=== PATIENT | female | born 1980 | race Two or more races ===

== ENCOUNTER 2021-07-20 14:38 | Emergency (ER) | payer OTHER ==
[2021-07-20 15:04] VITALS: TEMP 98.6; BMI 28.3
[2021-07-20] MEDS ORDERED: morphine CARPU-JECT 4 MG/1 ML DISP.SYRIN IVPUSH ONE (15:33)
[2021-07-20] MEDS ORDERED: HYDROmorphone HCL CARPU-JECT 2 MG/1 ML DISP.SYRIN IVPB ONE (15:53)
[2021-07-20] MEDS ORDERED: HYDROmorphone HCl 2 MG/ML VIAL ONE (16:01)
[2021-07-20 17:49] LABS: EPI CELLS 13 /uL (0-25.1); HYALINE CASTS 3 /uL (0-3.1); PH,URINE 5.5 (5.0-8.0); URINE APPEARANCE TURBID; URINE BACTERIA >9,000 /uL (0-1359); URINE BILIRUBIN NEGATIVE (NEGATIVE); URINE COLOR ORANGE; URINE GLUCOSE (UA) NEGATIVE (NEGATIVE); URINE KETONE TRACE (NEGATIVE); URINE LEUK ESTERASE 3+ (NEGATIVE); URINE NITRITE POSITIVE (NEGATIVE); URINE PROTEIN 2+ (NEGATIVE); URINE WBC 8816 /uL (0-25.8)
[2021-07-20 18:09] LABS: URINE RBC 540.9 /uL (0-23.9)
[2021-07-20] MEDS ORDERED: CEPHALEXIN MONOHYDRATE 500 MG CAPSULE (UD) PO ONE (18:56)
[2021-07-20] MEDS ORDERED: LIDOCAINE 5% TOPICAL PATCH TP ONE (19:14)
[2021-07-20] MEDS ORDERED: NITROFURANTOIN MACROCRYSTAL 50 MG CAPSULE (FP) PO SCH (19:15)
[2021-07-20] MEDS ORDERED: NITROFURANTOIN MACROCRYSTAL 50 MG CAPSULE (FP) ONE (20:02)
[2021-07-20] MEDS ORDERED: LIDOCAINE 5% TOPICAL PATCH ONE (20:03)
[2021-07-20] MEDS ORDERED: HYDROmorphone HCL CARPU-JECT 2 MG/1 ML DISP.SYRIN IM ONE (21:53)
[2021-07-20] MEDS ORDERED: LIDOCAINE PATCH REMOVAL MC SCH (22:00)
[2021-07-21 00:02] VITALS: BP 109/70; PULSE 107
[2021-07-21] MEDS ORDERED: HYDROmorphone HCl 2 MG/ML VIAL ONE ×2 (00:04→00:10)
== END 2021-07-21 05:13 | disposition home or self-care (01) ==
LOC: JER 14:38
PROC: 3E033GC Introduction of Other Therapeutic Substance into Peripheral Vein, Percutaneous Approach (ICD-10-PCS; principal; 2021-07-20)
PROC: 3E023GC Introduction of Other Therapeutic Substance into Muscle, Percutaneous Approach (ICD-10-PCS; principal; 2021-07-20)
DX: M54.89 Other dorsalgia (principal); W19.XXXA Unspecified fall, initial encounter
CPT/HCPCS: 72131-TC; 72192-TC; 81003; 84703; 87086; 87186; 99285-25

== ENCOUNTER 2021-08-15 10:59 | Inpatient (IN) | payer OTHER ==
[2021-08-15 11:06] VITALS: BMI 29.2
[2021-08-15] MEDS ORDERED: HYDROmorphone HCL CARPU-JECT 2 MG/1 ML DISP.SYRIN IVPUSH ONE ×2 (12:49→16:21)
[2021-08-15] MEDS ORDERED: HYDROmorphone HCl 2 MG/ML VIAL ONE ×3 (12:53→20:21)
[2021-08-15 13:57] LABS: RBC 3.39 M/mm3 (3.60-5.2); WHITE BLOOD COUNT 11.5 K/mm3 (4.0-10.0)
[2021-08-15 13:58] LABS: BASO % 0.5 % (0-2.0); EOS % 0.7 % (0-4.5); HEMATOCRIT 26.2 % (32.4-45.2); HEMOGLOBIN 8.6 GM/dL (10.7-15.3); LYMPH % 15.8 % (8-40); MCH 25.4 pg (25.7-33.7); MCHC 32.9 g/dl (32.0-36.0); MEAN CELL VOLUME 77.3 fl (80-96); MONO % 8.6 % (3.8-10.2); NEUT % 74.4 % (42.8-82.8); PLATELET COUNT 477 10^3/uL (134-434); RDW 16.1 % (11.6-15.6)
[2021-08-15 14:15] LABS: ALBUMIN 2.4 g/dl (3.4-5.0); BLOOD UREA NITROGEN 21.7 mg/dL (7-18); CALCIUM 8.5 mg/dL (8.5-10.1)
[2021-08-15 14:18] LABS: CREATININE 0.5 mg/dL (0.55-1.3)
[2021-08-15 14:19] LABS: BILIRUBIN,TOTAL 0.3 mg/dL (0.2-1)
[2021-08-15 14:20] LABS: TOT PROT 6.4 g/dl (6.4-8.2)
[2021-08-15 15:07] LABS: EPI CELLS 8 /uL (0-25.1); HYALINE CASTS 1 /uL (0-3.1); PH,URINE 6.5 (5.0-8.0); URINE APPEARANCE CLOUDY; URINE BACTERIA >9,000 /uL (0-1359); URINE BILIRUBIN NEGATIVE (NEGATIVE); URINE COLOR YELLOW; URINE GLUCOSE (UA) NEGATIVE (NEGATIVE); URINE KETONE NEGATIVE (NEGATIVE); URINE LEUK ESTERASE 3+ (NEGATIVE); URINE NITRITE POSITIVE (NEGATIVE); URINE PROTEIN 2+ (NEGATIVE); URINE RBC 215 /uL (0-23.9); URINE UROBILINOGEN 0.2 mg/dL (0.2-1.0); URINE WBC 1915 /uL (0-25.8)
[2021-08-15] MEDS ORDERED: CEFTRIAXONE 1,000 MG in DEXTROSE 5%-WATER - 50 ML IVPB ONE (16:01)
[2021-08-15] MEDS ORDERED: CEFTRIAXONE 1 GM/50 ML BAG ONE (16:05)
[2021-08-15] MEDS ORDERED: LACTATED RINGERS SOLUTION 1,000 ML/1,000 ML INFUS.BAG IV STA (16:39)
[2021-08-15] MEDS ORDERED: LINEZOLID 600 MG PREMIX BAG 600 MG in PREMIX 300 IVPB ONE (17:05)
[2021-08-15] MEDS ORDERED: HYDROmorphone HCL CARPU-JECT 2 MG/1 ML DISP.SYRIN IVPB PRN (17:08)
[2021-08-15] MEDS ORDERED: SODIUM CHLORIDE 1,000 ML IV SCH (17:15)
[2021-08-15] MEDS ORDERED: ENOXAPARIN NA (PORCINE) 40 MG/0.4 ML DISP.SYRIN SQ ONE (18:48)
[2021-08-15] MEDS: ENOXAPARIN NA (PORCINE) 40 MG/0.4 ML DISP.SYRIN SQ SCH (18:51)
[2021-08-15] MEDS ORDERED: SENNOSIDES 8.6MG TABLET (FP) PO ONE (23:13)
[2021-08-15] MEDS ORDERED: DOCUSATE SODIUM 100 MG CAPSULE (FP) PO ONE (23:14)
[2021-08-15] MEDS: DOCUSATE SODIUM 100 MG CAPSULE (FP) PO SCH (23:18)
[2021-08-15] MEDS: SENNOSIDES 8.6MG TABLET (FP) PO SCH (23:18)
[2021-08-16] MEDS: HYDROmorphone HCl 2 MG/ML VIAL IVPB PRN ×4 (00:58→23:44)
[2021-08-16] MEDS ORDERED: LINEZOLID 600 MG PREMIX BAG 600 MG/300 ML BAG IVPB SCH (06:00)
[2021-08-16 09:54] LABS: BASO % 0.5 % (0-2.0); EOS % 0.9 % (0-4.5); HEMATOCRIT 26.9 % (32.4-45.2); HEMOGLOBIN 8.8 GM/dL (10.7-15.3); LYMPH % 15.8 % (8-40); MCH 25.1 pg (25.7-33.7); MCHC 32.8 g/dl (32.0-36.0); MEAN CELL VOLUME 76.5 fl (80-96); MEAN PLT VOLUME 6.9 fl (7.5-11.1); MONO % 8.6 % (3.8-10.2); NEUT % 74.2 % (42.8-82.8); PLATELET COUNT 528 10^3/uL (134-434); RBC 3.52 M/mm3 (3.60-5.2); WHITE BLOOD COUNT 11.8 K/mm3 (4.0-10.0)
[2021-08-16 10:06] LABS: CALCIUM 8.3 mg/dL (8.5-10.1)
[2021-08-16 10:07] LABS: ALBUMIN 2.2 g/dl (3.4-5.0); BLOOD UREA NITROGEN 15.4 mg/dL (7-18)
[2021-08-16 10:10] LABS: CREATININE 0.5 mg/dL (0.55-1.3); PHOSPHOROUS 3.8 mg/dL (2.5-4.9)
[2021-08-16 10:11] LABS: TOT PROT 6.2 g/dl (6.4-8.2)
[2021-08-16 10:12] LABS: BILIRUBIN,TOTAL 0.5 mg/dL (0.2-1)
[2021-08-16] MEDS ORDERED: DEXTROSE 5%-WATER - 50 ML IVPB ONE (10:52)
[2021-08-16] MEDS ORDERED: cefTRIAXone SODIUM 1 GM VIAL ONE (10:52)
[2021-08-16] MEDS: ENOXAPARIN NA (PORCINE) 40 MG/0.4 ML DISP.SYRIN SQ SCH (10:56)
[2021-08-16] MEDS: CEFTRIAXONE 1 GM in DEXTROSE 5%-WATER - 50 ML IVPB SCH (10:56)
[2021-08-16] MEDS: DOCUSATE SODIUM 100 MG CAPSULE (FP) PO SCH ×2 (10:56→22:11)
[2021-08-16] MEDS: LINEZOLID 600 MG PREMIX BAG 600 MG/300 ML BAG IVPB SCH ×2 (12:51→12:52)
[2021-08-16] MEDS: oxyCODONE HCL 5 MG TABLET PO PRN ×2 (14:18→20:23)
[2021-08-16] MEDS: ACETAMINOPHEN 325 MG TABLET (FP) PO PRN (20:23)
[2021-08-16] MEDS: SENNOSIDES 8.6MG TABLET (FP) PO SCH (22:12)
[2021-08-16] MEDS: LINEZOLID 600 MG TABLET (RESTRICTED TO ID) PO SCH (22:12)
[2021-08-17] MEDS: LINEZOLID 600 MG TABLET (RESTRICTED TO ID) PO SCH ×3 (00:04→22:19)
[2021-08-17] MEDS: oxyCODONE HCL 5 MG TABLET PO PRN ×3 (06:04→20:30)
[2021-08-17] MEDS: ACETAMINOPHEN 325 MG TABLET (FP) PO PRN ×3 (06:04→20:31)
[2021-08-17] MEDS ORDERED: ONDANSETRON 4 MG/2 ML VIAL IVPUSH ONE (09:30)
[2021-08-17] MEDS ORDERED: cefTRIAXone SODIUM 1 GM VIAL ONE (10:10)
[2021-08-17] MEDS ORDERED: DEXTROSE 5%-WATER - 50 ML IVPB ONE (10:11)
[2021-08-17] MEDS: HYDROmorphone HCl 2 MG/ML VIAL IVPB PRN (10:27)
[2021-08-17] MEDS: CEFTRIAXONE 1 GM in DEXTROSE 5%-WATER - 50 ML IVPB SCH (10:30)
[2021-08-17] MEDS: DOCUSATE SODIUM 100 MG CAPSULE (FP) PO SCH ×2 (10:30→22:19)
[2021-08-17] MEDS: ENOXAPARIN NA (PORCINE) 40 MG/0.4 ML DISP.SYRIN SQ SCH (10:43)
[2021-08-17] MEDS ORDERED: clonazePAM 0.5 MG ODT TABLETS SL SCH (12:30)
[2021-08-17] MEDS ORDERED: clonazePAM 0.5 MG ODT TABLETS SL PRN (12:48)
[2021-08-17] MEDS: GABAPENTIN 300 MG CAPSULE PO SCH ×2 (14:59→22:19)
[2021-08-17] MEDS: clonazePAM 0.25 MG ODT TABLETS SL PRN (22:19)
[2021-08-17] MEDS: SENNOSIDES 8.6MG TABLET (FP) PO SCH (22:19)
[2021-08-17] MEDS: QUEtiapine FUMARATE 100 MG TABLET (FP) PO SCH (22:19)
[2021-08-17] MEDS: BACLOFEN 10 MG TABLET (FP) PO PRN (22:19)
[2021-08-18] MEDS: oxyCODONE HCL 5 MG TABLET PO PRN ×3 (05:21→20:26)
[2021-08-18] MEDS: GABAPENTIN 300 MG CAPSULE PO SCH ×3 (05:21→21:12)
[2021-08-18] MEDS: ACETAMINOPHEN 325 MG TABLET (FP) PO PRN ×2 (05:22→13:14)
[2021-08-18 08:31] LABS: CALCIUM 8.6 mg/dL (8.5-10.1)
[2021-08-18 08:33] LABS: ALBUMIN 2.3 g/dl (3.4-5.0); BLOOD UREA NITROGEN 18.3 mg/dL (7-18)
[2021-08-18 08:35] LABS: CREATININE 0.5 mg/dL (0.55-1.3)
[2021-08-18 08:37] LABS: BILIRUBIN,TOTAL 0.2 mg/dL (0.2-1); TOT PROT 6.8 g/dl (6.4-8.2)
[2021-08-18 08:40] LABS: HEMATOCRIT 29.3 % (32.4-45.2); HEMOGLOBIN 9.4 GM/dL (10.7-15.3); MCH 24.6 pg (25.7-33.7); MCHC 32.1 g/dl (32.0-36.0); MEAN CELL VOLUME 76.6 fl (80-96); MEAN PLT VOLUME 6.9 fl (7.5-11.1); PLATELET COUNT 646 10^3/uL (134-434); RBC 3.83 M/mm3 (3.60-5.2); RDW 15.8 % (11.6-15.6); WHITE BLOOD COUNT 9.8 K/mm3 (4.0-10.0)
[2021-08-18] MEDS ORDERED: DEXTROSE 5%-WATER - 50 ML IVPB ONE (09:59)
[2021-08-18] MEDS ORDERED: cefTRIAXone SODIUM 1 GM VIAL ONE (09:59)
[2021-08-18] MEDS: DOCUSATE SODIUM 100 MG CAPSULE (FP) PO SCH ×2 (10:13→21:12)
[2021-08-18] MEDS: LINEZOLID 600 MG TABLET (RESTRICTED TO ID) PO SCH (10:14)
[2021-08-18] MEDS: ENOXAPARIN NA (PORCINE) 40 MG/0.4 ML DISP.SYRIN SQ SCH (10:14)
[2021-08-18] MEDS: CEFTRIAXONE 1 GM in DEXTROSE 5%-WATER - 50 ML IVPB SCH (10:14)
[2021-08-18] MEDS ORDERED: AMPICILLIN NA/SULBACTAM NA 3 GM VIAL ONE ×2 (15:54→20:15)
[2021-08-18] MEDS ORDERED: SODIUM CHLORIDE 100 ML IVPB ONE ×2 (15:54→20:16)
[2021-08-18] MEDS: AMPICILLIN NA/SULBACTAM NA 3 GM in SODIUM CHLORIDE 100 ML IVPB SCH ×2 (15:57→20:26)
[2021-08-18] MEDS: QUEtiapine FUMARATE 100 MG TABLET (FP) PO SCH (21:12)
[2021-08-18] MEDS: SENNOSIDES 8.6MG TABLET (FP) PO SCH (21:12)
[2021-08-18] MEDS: BACLOFEN 10 MG TABLET (FP) PO PRN (23:37)
[2021-08-19] MEDS: ACETAMINOPHEN 325 MG TABLET (FP) PO PRN ×3 (00:39→15:05)
[2021-08-19] MEDS ORDERED: SODIUM CHLORIDE 100 ML IVPB ONE ×4 (02:06→21:17)
[2021-08-19] MEDS ORDERED: AMPICILLIN NA/SULBACTAM NA 3 GM VIAL ONE ×4 (02:06→21:17)
[2021-08-19] MEDS: oxyCODONE HCL 5 MG TABLET PO PRN ×4 (02:16→20:09)
[2021-08-19] MEDS: AMPICILLIN NA/SULBACTAM NA 3 GM in SODIUM CHLORIDE 100 ML IVPB SCH ×4 (02:16→21:22)
[2021-08-19] MEDS: GABAPENTIN 300 MG CAPSULE PO SCH ×3 (05:36→21:23)
[2021-08-19 08:07] LABS: HEMATOCRIT 28.1 % (32.4-45.2); HEMOGLOBIN 9.1 GM/dL (10.7-15.3); MCH 24.7 pg (25.7-33.7); MCHC 32.5 g/dl (32.0-36.0); MEAN CELL VOLUME 76.1 fl (80-96); MEAN PLT VOLUME 6.8 fl (7.5-11.1); PLATELET COUNT 651 10^3/uL (134-434); RDW 15.7 % (11.6-15.6); WHITE BLOOD COUNT 9.4 K/mm3 (4.0-10.0)
[2021-08-19 08:55] LABS: CALCIUM 8.7 mg/dL (8.5-10.1)
[2021-08-19 08:56] LABS: ALBUMIN 2.2 g/dl (3.4-5.0); BLOOD UREA NITROGEN 20.9 mg/dL (7-18)
[2021-08-19 08:59] LABS: CREATININE 0.6 mg/dL (0.55-1.3)
[2021-08-19 09:01] LABS: BILIRUBIN,TOTAL 0.2 mg/dL (0.2-1); TOT PROT 6.6 g/dl (6.4-8.2)
[2021-08-19] MEDS: ENOXAPARIN NA (PORCINE) 40 MG/0.4 ML DISP.SYRIN SQ SCH (09:15)
[2021-08-19] MEDS: DOCUSATE SODIUM 100 MG CAPSULE (FP) PO SCH ×2 (09:15→21:23)
[2021-08-19] MEDS: BACLOFEN 10 MG TABLET (FP) PO PRN (20:09)
[2021-08-19] MEDS: SENNOSIDES 8.6MG TABLET (FP) PO SCH (21:22)
[2021-08-19] MEDS: QUEtiapine FUMARATE 100 MG TABLET (FP) PO SCH (21:23)
[2021-08-20] MEDS: ACETAMINOPHEN 325 MG TABLET (FP) PO PRN ×3 (00:07→20:26)
[2021-08-20] MEDS: oxyCODONE HCL 5 MG TABLET PO PRN ×4 (01:20→20:26)
[2021-08-20] MEDS ORDERED: AMPICILLIN NA/SULBACTAM NA 3 GM VIAL ONE ×3 (02:53→14:57)
[2021-08-20] MEDS ORDERED: SODIUM CHLORIDE 100 ML IVPB ONE ×2 (02:54→09:04)
[2021-08-20] MEDS: AMPICILLIN NA/SULBACTAM NA 3 GM in SODIUM CHLORIDE 100 ML IVPB SCH ×3 (03:02→15:04)
[2021-08-20] MEDS: GABAPENTIN 300 MG CAPSULE PO SCH ×3 (06:05→21:33)
[2021-08-20 08:13] LABS: HEMATOCRIT 26.8 % (32.4-45.2); HEMOGLOBIN 8.7 GM/dL (10.7-15.3); MCH 24.8 pg (25.7-33.7); MCHC 32.6 g/dl (32.0-36.0); MEAN CELL VOLUME 75.9 fl (80-96); MEAN PLT VOLUME 6.4 fl (7.5-11.1); PLATELET COUNT 580 10^3/uL (134-434); RBC 3.53 M/mm3 (3.60-5.2); RDW 15.6 % (11.6-15.6); WHITE BLOOD COUNT 8.8 K/mm3 (4.0-10.0)
[2021-08-20 08:57] LABS: CALCIUM 8.4 mg/dL (8.5-10.1)
[2021-08-20 08:58] LABS: ALBUMIN 2.2 g/dl (3.4-5.0); BLOOD UREA NITROGEN 19.9 mg/dL (7-18)
[2021-08-20 09:00] LABS: CREATININE 0.4 mg/dL (0.55-1.3)
[2021-08-20 09:02] LABS: BILIRUBIN,TOTAL 0.2 mg/dL (0.2-1); TOT PROT 6.6 g/dl (6.4-8.2)
[2021-08-20] MEDS: FLUoxetine HCL 20 MG CAPSULE PO SCH (09:12)
[2021-08-20] MEDS: ENOXAPARIN NA (PORCINE) 40 MG/0.4 ML DISP.SYRIN SQ SCH (09:12)
[2021-08-20] MEDS: DOCUSATE SODIUM 100 MG CAPSULE (FP) PO SCH ×2 (09:12→21:33)
[2021-08-20] MEDS: POLYETHYLENE GLYCOL (HEALTHYLAX) 3350 17 GM PACKET PO SCH (21:33)
[2021-08-20] MEDS: BACLOFEN 10 MG TABLET (FP) PO PRN (21:33)
[2021-08-20] MEDS: QUEtiapine FUMARATE 100 MG TABLET (FP) PO SCH (21:33)
[2021-08-20] MEDS: CYCLOBENZAPRINE HCL 10 MG TABLET (FP) PO SCH (21:33)
[2021-08-20] MEDS: SENNOSIDES 8.6MG TABLET (FP) PO SCH (21:34)
[2021-08-20] MEDS: clonazePAM 0.25 MG ODT TABLETS SL PRN (21:34)
[2021-08-21] MEDS: oxyCODONE HCL 5 MG TABLET PO PRN ×2 (04:47→10:08)
[2021-08-21] MEDS: BACLOFEN 10 MG TABLET (FP) PO PRN ×2 (04:47→10:10)
[2021-08-21] MEDS: ACETAMINOPHEN 325 MG TABLET (FP) PO PRN ×2 (04:48→10:09)
[2021-08-21] MEDS: GABAPENTIN 300 MG CAPSULE PO SCH (05:00)
[2021-08-21 05:55] VITALS: BP 122/58; PULSE 85; TEMP 97.9
[2021-08-21 09:53] LABS: HEMATOCRIT 27.6 % (32.4-45.2); HEMOGLOBIN 8.9 GM/dL (10.7-15.3); MCH 24.3 pg (25.7-33.7); MCHC 32.1 g/dl (32.0-36.0); MEAN CELL VOLUME 75.6 fl (80-96); MEAN PLT VOLUME 6.2 fl (7.5-11.1); PLATELET COUNT 593 10^3/uL (134-434); RBC 3.66 M/mm3 (3.60-5.2); RDW 16.2 % (11.6-15.6); WHITE BLOOD COUNT 8.4 K/mm3 (4.0-10.0)
[2021-08-21] MEDS: ENOXAPARIN NA (PORCINE) 40 MG/0.4 ML DISP.SYRIN SQ SCH (10:02)
[2021-08-21] MEDS: FLUoxetine HCL 20 MG CAPSULE PO SCH (10:02)
[2021-08-21] MEDS: POLYETHYLENE GLYCOL (HEALTHYLAX) 3350 17 GM PACKET PO SCH (10:03)
[2021-08-21] MEDS: CYCLOBENZAPRINE HCL 10 MG TABLET (FP) PO SCH (10:03)
[2021-08-21] MEDS: DOCUSATE SODIUM 100 MG CAPSULE (FP) PO SCH (10:03)
[2021-08-21 10:07] LABS: CALCIUM 8.6 mg/dL (8.5-10.1)
[2021-08-21 10:08] LABS: ALBUMIN 2.2 g/dl (3.4-5.0); BLOOD UREA NITROGEN 21.6 mg/dL (7-18)
[2021-08-21 10:11] LABS: CREATININE 0.5 mg/dL (0.55-1.3)
[2021-08-21 10:12] LABS: BILIRUBIN,TOTAL 0.3 mg/dL (0.2-1)
[2021-08-21 10:13] LABS: TOT PROT 6.5 g/dl (6.4-8.2)
[2021-08-21] MEDS ORDERED: AMOX TR/POT CLAV 875MG/125MG TABLETS (FP) PO SCH (19:04)
== END 2021-08-21 11:58 | disposition home or self-care (01) | DRG 463 ==
LOC: JER 10:59 → JERBED 15:57 → J8W 08-16 00:38
PROVIDERS: ADMIT Internal Medicine; ATTEND Internal Medicine
DX: N39.0 Urinary tract infection, site not specified (principal); D50.9 Iron deficiency anemia, unspecified; K59.09 Other constipation; N31.9 Neuromuscular dysfunction of bladder, unspecified; F32.A Depression, unspecified; D72.829 Elevated white blood cell count, unspecified; Z86.16 Personal history of COVID-19; R11.2 Nausea with vomiting, unspecified; R31.0 Gross hematuria; B95.2 Enterococcus as the cause of diseases classified elsewhere; B96.20 Unspecified Escherichia coli [E. coli] as the cause of diseases classified elsewhere; Z28.310 Unvaccinated for COVID-19; F41.9 Anxiety disorder, unspecified
CPT/HCPCS: 36415; 74176-TC; 80053; 81003; 82272; 82728; 83540; 83550; 83735; 84100; 85025; 85027; 85045; 87040; 87086; 87186; 93005; 93010; 97162-GP; 99285-25; C9803-CS; J0475; U0003; U0005

== ENCOUNTER 2021-11-04 10:27 | Emergency (ER) | payer OTHER ==
[2021-11-04 10:59] VITALS: TEMP 98.2; BMI 24.7
[2021-11-04] MEDS ORDERED: SODIUM CHLORIDE 1,000 ML IV STA (11:07)
[2021-11-04] MEDS ORDERED: ACETAMINOPHEN 1000 MG/100 ML BAG IVPB ONE (11:07)
[2021-11-04] MEDS ORDERED: ACETAMINOPHEN INJECTION 100 ML IVPB ONE (11:26)
[2021-11-04 12:07] LABS: BASO % 0.6 % (0-2.0); EOS % 1.2 % (0-4.5); HEMATOCRIT 34.6 % (32.4-45.2); HEMOGLOBIN 11.7 GM/dL (10.7-15.3); LYMPH % 23.7 % (8-40); MCHC 33.8 g/dl (32.0-36.0); MEAN CELL VOLUME 76.7 fl (80-96); MONO % 7.3 % (3.8-10.2); NEUT % 67.2 % (42.8-82.8); PLATELET COUNT 418 10^3/uL (134-434); RBC 4.51 M/mm3 (3.60-5.2); RDW 17.2 % (11.6-15.6)
[2021-11-04 12:09] LABS: EPI CELLS 32 /uL (0-25.1); HYALINE CASTS 8 /uL (0-3.1); PH,URINE 5.5 (5.0-8.0); URINE APPEARANCE TURBID; URINE BACTERIA 8151 /uL (0-1359); URINE BILIRUBIN NEGATIVE (NEGATIVE); URINE COLOR YELLOW; URINE GLUCOSE (UA) NEGATIVE (NEGATIVE); URINE KETONE NEGATIVE (NEGATIVE); URINE LEUK ESTERASE 3+ (NEGATIVE); URINE NITRITE POSITIVE (NEGATIVE); URINE PROTEIN 2+ (NEGATIVE); URINE RBC 466 /uL (0-23.9); URINE UROBILINOGEN 0.2 mg/dL (0.2-1.0); URINE WBC 9051 /uL (0-25.8)
[2021-11-04] MEDS ORDERED: HYDROmorphone HCL CARPU-JECT 2 MG/1 ML DISP.SYRIN IVPB ONE (12:15)
[2021-11-04] MEDS ORDERED: HYDROmorphone HCl 2 MG/ML VIAL ONE (12:21)
[2021-11-04 12:30] LABS: CALCIUM 8.8 mg/dL (8.5-10.1)
[2021-11-04 12:31] LABS: ALBUMIN 3.2 g/dl (3.4-5.0); BLOOD UREA NITROGEN 12.3 mg/dL (7-18)
[2021-11-04 12:34] LABS: CREATININE 0.5 mg/dL (0.55-1.3)
[2021-11-04 12:36] LABS: BILIRUBIN,TOTAL 0.5 mg/dL (0.2-1); TOT PROT 7.3 g/dl (6.4-8.2)
[2021-11-04] MEDS ORDERED: CEFTRIAXONE 1,000 MG in DEXTROSE 5%-WATER - 50 ML IVPB ONE (13:18)
[2021-11-04] MEDS ORDERED: CEFTRIAXONE 1 GM/50 ML BAG ONE (13:34)
[2021-11-04] MEDS ORDERED: SODIUM CHLORIDE 0.9% 500 ML INFUS.BAG IV ONE (14:32)
[2021-11-04 16:27] VITALS: BP 111/77; PULSE 60; RESP 14
== END 2021-11-04 16:27 | disposition home or self-care (01) ==
LOC: JER 10:27
PROC: 3E033GC Introduction of Other Therapeutic Substance into Peripheral Vein, Percutaneous Approach (ICD-10-PCS; principal; 2021-11-04)
DX: N39.0 Urinary tract infection, site not specified (principal); R31.9 Hematuria, unspecified
CPT/HCPCS: 36415; 80053; 81003; 85025; 87086; 87186; 93005; 93010; 99284-25

== ENCOUNTER 2022-01-17 01:26 | Inpatient (IN) | payer OTHER ==
[2022-01-17] MEDS ORDERED: HYDROmorphone HCL CARPU-JECT 2 MG/1 ML DISP.SYRIN IVPUSH ONE (02:51)
[2022-01-17] MEDS ORDERED: ONDANSETRON 4 MG/2 ML VIAL IVPUSH ONE (02:51)
[2022-01-17 03:00] LABS: EPI CELLS 4 /uL (0-25.1); HYALINE CASTS 5 /uL (0-3.1); URINE APPEARANCE CLOUDY; URINE BACTERIA 2303 /uL (0-1359); URINE BILIRUBIN NEGATIVE (NEGATIVE); URINE COLOR YELLOW; URINE GLUCOSE (UA) NEGATIVE (NEGATIVE); URINE KETONE NEGATIVE (NEGATIVE); URINE LEUK ESTERASE 3+ (NEGATIVE); URINE NITRITE NEGATIVE (NEGATIVE); URINE PROTEIN TRACE (NEGATIVE); URINE RBC 293 /uL (0-23.9); URINE UROBILINOGEN 0.2 mg/dL (0.2-1.0); URINE WBC 926 /uL (0-25.8)
[2022-01-17] MEDS ORDERED: LINEZOLID 600 MG PREMIX BAG 600 MG in PREMIX 300 IVPB ONE (03:04)
[2022-01-17] MEDS ORDERED: PIPERACILLIN/TAZOB 3.375 GM 3.375 GM in DEXTROSE 5%-WATER - 50 ML IVPB ONE (03:05)
[2022-01-17] MEDS ORDERED: HYDROmorphone HCl 2 MG/ML VIAL ONE ×2 (03:11→10:27)
[2022-01-17] MEDS ORDERED: ONDANSETRON 4 MG/2 ML VIAL ONE (03:12)
[2022-01-17] MEDS ORDERED: PIPERACILLIN/TAZOB 3.375 GM 3.375 GM/50 ML BAG IVPB ONE ×3 (03:25→10:42)
[2022-01-17 03:32] LABS: BASO % 0.9 % (0-2.0); EOS % 3.4 % (0-4.5); HEMATOCRIT 33.3 % (32.4-45.2); HEMOGLOBIN 10.8 GM/dL (10.7-15.3); LYMPH % 31.9 % (8-40); MCH 25.5 pg (25.7-33.7); MCHC 32.6 g/dl (32.0-36.0); MEAN CELL VOLUME 78.4 fl (80-96); MEAN PLT VOLUME 7.5 fl (7.5-11.1); MONO % 9.8 % (3.8-10.2); PLATELET COUNT 382 10^3/uL (134-434); RBC 4.25 M/mm3 (3.60-5.2); RDW 18.3 % (11.6-15.6); WHITE BLOOD COUNT 7.7 K/mm3 (4.0-10.0)
[2022-01-17 04:00] LABS: ALBUMIN 3.3 g/dl (3.4-5.0); BLOOD UREA NITROGEN 14.8 mg/dL (7-18); CALCIUM 8.7 mg/dL (8.5-10.1); MAGNESIUM 1.9 mg/dL (1.8-2.4)
[2022-01-17 04:04] LABS: CREATININE 0.6 mg/dL (0.55-1.3)
[2022-01-17 04:05] LABS: BILIRUBIN,TOTAL 0.2 mg/dL (0.2-1); TOT PROT 6.7 g/dl (6.4-8.2)
[2022-01-17] MEDS ORDERED: SENNOSIDES/DOCUSATE COMBO (SENNA PLUS) TABLET (UD) PO PRN (06:02)
[2022-01-17] MEDS ORDERED: ACETAMINOPHEN 325 MG TABLET (FP) PO PRN (06:02)
[2022-01-17] MEDS ORDERED: GABAPENTIN 300 MG CAPSULE ONE ×2 (06:23→13:01)
[2022-01-17] MEDS ORDERED: LIDOCAINE 5% TOPICAL PATCH ONE (06:23)
[2022-01-17] MEDS: GABAPENTIN 300 MG CAPSULE PO SCH ×3 (06:28→22:33)
[2022-01-17] MEDS ORDERED: LIDOCAINE 5% TOPICAL PATCH TP ONE (06:45)
[2022-01-17] MEDS ORDERED: LINEZOLID 600 MG PREMIX BAG 600 MG in PREMIX 300 IVPB SCH ×2 (06:45→16:00)
[2022-01-17] MEDS ORDERED: oxyCODONE HCL 5 MG TABLET ONE ×2 (07:26→15:25)
[2022-01-17] MEDS ORDERED: clonazePAM 0.5 MG TABLET ONE (07:26)
[2022-01-17] MEDS ORDERED: ACETAMINOPHEN 325 MG TABLET (FP) ONE (07:26)
[2022-01-17] MEDS ORDERED: oxyCODONE HCL 5 MG TABLET PO PRN (07:43)
[2022-01-17] MEDS ORDERED: morphine CARPU-JECT 2 MG/1 ML DISP.SYRIN IVPUSH PRN (09:11)
[2022-01-17 09:15] LABS: HCG,QUALITATIVE URINE Negative
[2022-01-17] MEDS: clonazePAM 0.25 MG ODT TABLETS SL SCH ×2 (09:22→22:32)
[2022-01-17] MEDS ORDERED: HYDROmorphone HCl 2 MG/ML VIAL IVPUSH ONE (09:30)
[2022-01-17] MEDS ORDERED: PIPERACILLIN/TAZOB 3.375 GM 3.375 GM in DEXTROSE 5%-WATER - 50 ML IVPB SCH (10:00)
[2022-01-17] MEDS ORDERED: FLUoxetine HCL 20 MG CAPSULE PO SCH (10:00)
[2022-01-17] MEDS ORDERED: ENOXAPARIN NA (PORCINE) 40 MG/0.4 ML DISP.SYRIN SQ ONE (10:29)
[2022-01-17] MEDS: ENOXAPARIN NA (PORCINE) 40 MG/0.4 ML DISP.SYRIN SQ SCH (10:51)
[2022-01-17] MEDS: POLYETHYLENE GLYCOL (HEALTHYLAX) 3350 17 GM PACKET PO SCH (11:04)
[2022-01-17] MEDS ORDERED: CEFTRIAXONE 2 GM in DEXTROSE 5%-WATER 50 ML IVPB SCH (12:30)
[2022-01-17] MEDS ORDERED: CEFTRIAXONE 2 GM/100 ML BAG IVPB ONE (13:01)
[2022-01-17] MEDS: oxyCODONE HCL 5 MG TABLET PO PRN (15:30)
[2022-01-17] MEDS ORDERED: LINEZOLID 600 MG PREMIX BAG 600 MG/300 ML BAG IVPB SCH (16:00)
[2022-01-17] MEDS ORDERED: ONDANSETRON 4 MG/2 ML VIAL IVPUSH PRN (21:58)
[2022-01-17] MEDS ORDERED: HYDROmorphone HCl 2 MG/ML VIAL IVPB ONE (22:07)
[2022-01-17] MEDS: LIDOCAINE PATCH REMOVAL MC SCH (22:32)
[2022-01-17] MEDS: DOCUSATE SODIUM 100 MG CAPSULE (FP) PO SCH (22:32)
[2022-01-18 03:49] VITALS: BMI 25.1
[2022-01-18] MEDS: GABAPENTIN 300 MG CAPSULE PO SCH ×3 (06:17→21:00)
[2022-01-18] MEDS: oxyCODONE HCL 5 MG TABLET PO PRN ×3 (09:05→23:46)
[2022-01-18] MEDS: FLUoxetine HCL 20 MG CAPSULE PO SCH (09:22)
[2022-01-18] MEDS: clonazePAM 0.25 MG ODT TABLETS SL SCH ×2 (09:23→21:01)
[2022-01-18] MEDS: POLYETHYLENE GLYCOL (HEALTHYLAX) 3350 17 GM PACKET PO SCH (09:23)
[2022-01-18] MEDS: ENOXAPARIN NA (PORCINE) 40 MG/0.4 ML DISP.SYRIN SQ SCH ×2 (09:23→09:24)
[2022-01-18] MEDS: BACLOFEN 10 MG TABLET (FP) PO PRN (09:30)
[2022-01-18] MEDS: CEFTRIAXONE 2 GM in DEXTROSE 5%-WATER 100 ML IVPB SCH (09:30)
[2022-01-18 09:49] LABS: BASO % 0.9 % (0-2.0); EOS % 3.9 % (0-4.5); HEMATOCRIT 32.7 % (32.4-45.2); HEMOGLOBIN 10.4 GM/dL (10.7-15.3); LYMPH % 32.6 % (8-40); MCH 24.9 pg (25.7-33.7); MCHC 31.8 g/dl (32.0-36.0); MEAN CELL VOLUME 78.4 fl (80-96); MEAN PLT VOLUME 7.9 fl (7.5-11.1); MONO % 8.5 % (3.8-10.2); NEUT % 54.1 % (42.8-82.8); PLATELET COUNT 367 10^3/uL (134-434); RBC 4.17 M/mm3 (3.60-5.2); WHITE BLOOD COUNT 7.2 K/mm3 (4.0-10.0)
[2022-01-18 10:16] LABS: CALCIUM 8.4 mg/dL (8.5-10.1)
[2022-01-18 10:18] LABS: BLOOD UREA NITROGEN 23.6 mg/dL (7-18); MAGNESIUM 2.1 mg/dL (1.8-2.4)
[2022-01-18 10:20] LABS: CREATININE 0.6 mg/dL (0.55-1.3)
[2022-01-18 10:22] LABS: BILIRUBIN,TOTAL 0.2 mg/dL (0.2-1); TOT PROT 6.5 g/dl (6.4-8.2)
[2022-01-18] MEDS: DOCUSATE SODIUM 100 MG CAPSULE (FP) PO SCH (21:00)
[2022-01-18] MEDS: ACETAMINOPHEN 325 MG TABLET (FP) PO PRN (21:01)
[2022-01-18] MEDS: LIDOCAINE PATCH REMOVAL MC SCH (21:01)
[2022-01-19] MEDS: GABAPENTIN 300 MG CAPSULE PO SCH ×3 (06:14→22:34)
[2022-01-19] MEDS: oxyCODONE HCL 5 MG TABLET PO PRN ×4 (06:19→23:38)
[2022-01-19 09:41] LABS: BASO % 0.8 % (0-2.0); EOS % 4.3 % (0-4.5); HEMATOCRIT 34.7 % (32.4-45.2); LYMPH % 42.3 % (8-40); MCH 24.9 pg (25.7-33.7); MCHC 31.8 g/dl (32.0-36.0); MEAN CELL VOLUME 78.5 fl (80-96); MEAN PLT VOLUME 7.9 fl (7.5-11.1); MONO % 7.6 % (3.8-10.2); PLATELET COUNT 388 10^3/uL (134-434); RBC 4.42 M/mm3 (3.60-5.2); RDW 17.9 % (11.6-15.6); WHITE BLOOD COUNT 6.3 K/mm3 (4.0-10.0)
[2022-01-19] MEDS: ENOXAPARIN NA (PORCINE) 40 MG/0.4 ML DISP.SYRIN SQ SCH (09:51)
[2022-01-19] MEDS: FLUoxetine HCL 20 MG CAPSULE PO SCH (09:55)
[2022-01-19] MEDS: clonazePAM 0.25 MG ODT TABLETS SL SCH ×2 (09:56→22:34)
[2022-01-19] MEDS: POLYETHYLENE GLYCOL (HEALTHYLAX) 3350 17 GM PACKET PO SCH (09:59)
[2022-01-19] MEDS: CEFTRIAXONE 2 GM in DEXTROSE 5%-WATER 100 ML IVPB SCH (09:59)
[2022-01-19 10:09] LABS: ALBUMIN 3.2 g/dl (3.4-5.0); BLOOD UREA NITROGEN 30.4 mg/dL (7-18); CALCIUM 8.4 mg/dL (8.5-10.1); CREATININE 0.6 mg/dL (0.55-1.3); MAGNESIUM 2.2 mg/dL (1.8-2.4)
[2022-01-19 10:14] LABS: BILIRUBIN,TOTAL 0.3 mg/dL (0.2-1); TOT PROT 6.8 g/dl (6.4-8.2)
[2022-01-19] MEDS: BACLOFEN 10 MG TABLET (FP) PO PRN ×2 (11:38→17:32)
[2022-01-19] MEDS: DOCUSATE SODIUM 100 MG CAPSULE (FP) PO SCH (22:34)
[2022-01-19] MEDS: ACETAMINOPHEN 325 MG TABLET (FP) PO PRN (22:39)
[2022-01-19] MEDS: LIDOCAINE PATCH REMOVAL MC SCH (22:42)
[2022-01-20] MEDS: GABAPENTIN 300 MG CAPSULE PO SCH ×3 (07:40→21:36)
[2022-01-20] MEDS: BACLOFEN 10 MG TABLET (FP) PO PRN ×3 (07:44→19:00)
[2022-01-20] MEDS: oxyCODONE HCL 5 MG TABLET PO PRN ×4 (07:44→21:47)
[2022-01-20 09:34] LABS: HEMATOCRIT 33.5 % (32.4-45.2); HEMOGLOBIN 10.7 GM/dL (10.7-15.3); LYMPH % 40.4 % (8-40); MCH 24.9 pg (25.7-33.7); MCHC 31.9 g/dl (32.0-36.0); MEAN CELL VOLUME 78.2 fl (80-96); MONO % 7.3 % (3.8-10.2); NEUT % 47.3 % (42.8-82.8); PLATELET COUNT 389 10^3/uL (134-434); RBC 4.29 M/mm3 (3.60-5.2); RDW 17.6 % (11.6-15.6); WHITE BLOOD COUNT 6.9 K/mm3 (4.0-10.0)
[2022-01-20 09:54] LABS: CALCIUM 8.3 mg/dL (8.5-10.1)
[2022-01-20 09:55] LABS: ALBUMIN 3.1 g/dl (3.4-5.0); BLOOD UREA NITROGEN 19.7 mg/dL (7-18); MAGNESIUM 2.1 mg/dL (1.8-2.4)
[2022-01-20 09:58] LABS: CREATININE 0.5 mg/dL (0.55-1.3)
[2022-01-20 09:59] LABS: BILIRUBIN,TOTAL 0.3 mg/dL (0.2-1); TOT PROT 6.7 g/dl (6.4-8.2)
[2022-01-20] MEDS: CEFTRIAXONE 2 GM in DEXTROSE 5%-WATER 100 ML IVPB SCH (10:48)
[2022-01-20] MEDS: ENOXAPARIN NA (PORCINE) 40 MG/0.4 ML DISP.SYRIN SQ SCH (10:49)
[2022-01-20] MEDS: clonazePAM 0.25 MG ODT TABLETS SL SCH ×2 (10:49→21:35)
[2022-01-20] MEDS: FLUoxetine HCL 20 MG CAPSULE PO SCH (10:50)
[2022-01-20] MEDS: POLYETHYLENE GLYCOL (HEALTHYLAX) 3350 17 GM PACKET PO SCH ×2 (11:32→17:30)
[2022-01-20] MEDS: ACETAMINOPHEN 325 MG TABLET (FP) PO PRN (17:49)
[2022-01-20] MEDS: DOCUSATE SODIUM 100 MG CAPSULE (FP) PO SCH (21:36)
[2022-01-20] MEDS: LIDOCAINE PATCH REMOVAL MC SCH (21:39)
[2022-01-21] MEDS: oxyCODONE HCL 5 MG TABLET PO PRN ×3 (02:29→10:37)
[2022-01-21] MEDS: GABAPENTIN 300 MG CAPSULE PO SCH ×2 (06:21→14:42)
[2022-01-21] MEDS: clonazePAM 0.25 MG ODT TABLETS SL SCH (09:37)
[2022-01-21] MEDS: POLYETHYLENE GLYCOL (HEALTHYLAX) 3350 17 GM PACKET PO SCH (09:37)
[2022-01-21] MEDS: FLUoxetine HCL 20 MG CAPSULE PO SCH (09:37)
[2022-01-21] MEDS: ENOXAPARIN NA (PORCINE) 40 MG/0.4 ML DISP.SYRIN SQ SCH ×2 (09:38→09:45)
[2022-01-21] MEDS: CEFTRIAXONE 2 GM in DEXTROSE 5%-WATER 100 ML IVPB SCH (09:38)
[2022-01-21] MEDS: ACETAMINOPHEN 325 MG TABLET (FP) PO PRN (09:47)
[2022-01-21] MEDS: BACLOFEN 10 MG TABLET (FP) PO PRN (09:48)
[2022-01-21 11:49] VITALS: BP 111/61; PULSE 88; RESP 18; TEMP 98.5
== END 2022-01-21 15:05 | disposition home or self-care (01) | DRG 463 ==
LOC: JER 01:26 → JERBED 04:36 → J8W 20:30
PROVIDERS: ADMIT Internal Medicine; ATTEND Nurse Practitioner Acute Care
DX: N39.0 Urinary tract infection, site not specified (principal); N31.9 Neuromuscular dysfunction of bladder, unspecified; Z86.16 Personal history of COVID-19; R11.2 Nausea with vomiting, unspecified; F41.9 Anxiety disorder, unspecified; M54.9 Dorsalgia, unspecified; R31.0 Gross hematuria; D50.9 Iron deficiency anemia, unspecified
CPT/HCPCS: 36415; 71045-TC-FY; 80053; 81003; 83735; 84703; 85025; 87040; 87086; 87186; 93005; 93010; 97116-GP; 97161-GP; 99285-25; C9803-CS; J0475; U0003; U0005

== ENCOUNTER 2022-05-06 11:37 | Observation (INO) | payer OTHER ==
[2022-05-06] MEDS ORDERED: KETOROLAC TROMETHAMINE 30 MG/1 ML VIAL IVPUSH ONE (12:21)
[2022-05-06] MEDS ORDERED: KETOROLAC TROMETHAMINE 30 MG/1 ML VIAL ONE (12:39)
[2022-05-06] MEDS ORDERED: SODIUM CHLORIDE 2,177 ML IV ONE (12:40)
[2022-05-06] MEDS ORDERED: CEFTRIAXONE 1 GM in DEXTROSE 5%-WATER - 100 ML IVPB ONE (12:41)
[2022-05-06 12:47] LABS: EPI CELLS 31 /uL (0-25.1); HYALINE CASTS 4 /uL (0-3.1); PH,URINE 5.5 (5.0-8.0); URINE APPEARANCE TURBID; URINE BACTERIA 5673 /uL (0-1359); URINE BILIRUBIN NEGATIVE (NEGATIVE); URINE COLOR YELLOW; URINE GLUCOSE (UA) NEGATIVE (NEGATIVE); URINE KETONE TRACE (NEGATIVE); URINE LEUK ESTERASE 2+ (NEGATIVE); URINE NITRITE POSITIVE (NEGATIVE); URINE PROTEIN 3+ (NEGATIVE); URINE WBC 8904 /uL (0-25.8)
[2022-05-06] MEDS ORDERED: oxyCODONE/APAP PERCOCET - MUST ORDER INDIVIDUAL COMPONENTS NR ONE (12:49)
[2022-05-06] MEDS ORDERED: CEFTRIAXONE 1 GM/50 ML BAG ONE (12:50)
[2022-05-06 13:10] LABS: CALCIUM 8.4 mg/dL (8.5-10.1)
[2022-05-06 13:11] LABS: BLOOD UREA NITROGEN 19.6 mg/dL (7-18)
[2022-05-06 13:13] LABS: CREATININE 0.5 mg/dL (0.55-1.3)
[2022-05-06 13:15] LABS: BILIRUBIN,TOTAL 0.1 mg/dL (0.2-1); TOT PROT 6.6 g/dl (6.4-8.2)
[2022-05-06 13:16] LABS: URINE RBC 235.2 /uL (0-23.9); YEAST NEGATIVE (NEGATIVE)
[2022-05-06] MEDS ORDERED: PHENAZOPYRIDINE HCL 100 MG TABLET (FP) PO ONE (13:17)
[2022-05-06] MEDS ORDERED: HYDROmorphone HCL CARPU-JECT 2 MG/1 ML DISP.SYRIN IVPUSH ONE (13:17)
[2022-05-06 13:21] LABS: BASO % 0.6 % (0-2.0); HEMATOCRIT 34.7 % (32.4-45.2); HEMOGLOBIN 11.4 GM/dL (10.7-15.3); MCH 25.8 pg (25.7-33.7); MCHC 32.8 g/dl (32.0-36.0); MEAN CELL VOLUME 78.8 fl (80-96); MEAN PLT VOLUME 7.6 fl (7.5-11.1); MONO % 8.7 % (3.8-10.2); NEUT % 44.7 % (42.8-82.8); PLATELET COUNT 358 10^3/uL (134-434); RDW 19.1 % (11.6-15.6)
[2022-05-06] MEDS ORDERED: PHENAZOPYRIDINE HCL 100 MG TABLET (FP) ONE (13:22)
[2022-05-06] MEDS ORDERED: HYDROmorphone HCl 2 MG/ML VIAL ONE (13:23)
[2022-05-06 13:49] LABS: INR 1.02 (0.83-1.09); PROTHROMBIN TIME (PATIENT) 11.8 SEC (9.7-13.0)
[2022-05-06 13:52] LABS: ACTIVATED PTT 32.9 SECONDS (25.2-36.5)
[2022-05-06] MEDS ORDERED: LACTATED RINGERS SOLUTION 1,000 ML IV SCH (14:45)
[2022-05-06] MEDS ORDERED: CEFTRIAXONE 1 GM in DEXTROSE 5%-WATER - 50 ML IVPB ONE (14:50)
[2022-05-06] MEDS ORDERED: oxyCODONE HCL 5 MG TABLET PO PRN ×2 (15:12→15:27)
[2022-05-06] MEDS ORDERED: ACETAMINOPHEN 325 MG TABLET (FP) PO PRN (15:12)
[2022-05-06] MEDS ORDERED: ENOXAPARIN NA (PORCINE) 40 MG/0.4 ML DISP.SYRIN SQ ONE (15:15)
[2022-05-06] MEDS: ENOXAPARIN NA (PORCINE) 40 MG/0.4 ML DISP.SYRIN SQ SCH (15:17)
[2022-05-06] MEDS ORDERED: PATIENT'S OWN MEDICATION (NON-FORMULARY) (Gabapentin [Gabapentin] 600 MG Tablet) PO SCH (15:30)
[2022-05-06 16:42] VITALS: BMI 32.1
[2022-05-06] MEDS: POLYETHYLENE GLYCOL (HEALTHYLAX) 3350 17 GM PACKET PO SCH (16:42)
[2022-05-06] MEDS: DOCUSATE SODIUM 100 MG CAPSULE (FP) PO SCH (16:42)
[2022-05-06] MEDS ORDERED: HYDROmorphone HCl 2 MG/ML VIAL IVPUSH PRN (21:39)
[2022-05-06] MEDS ORDERED: LIDOCAINE 5% TOPICAL PATCH TP SCH (21:45)
[2022-05-06] MEDS ORDERED: LIDOCAINE PATCH REMOVAL MC SCH (22:00)
[2022-05-06] MEDS: SENNOSIDES/DOCUSATE COMBO (SENNA PLUS) TABLET (UD) PO PRN (22:14)
[2022-05-06] MEDS: clonazePAM 0.5 MG TABLET PO SCH (22:15)
[2022-05-06] MEDS: GABAPENTIN 300 MG CAPSULE PO SCH (22:15)
[2022-05-06] MEDS: BACLOFEN 10 MG TABLET (FP) PO SCH (22:15)
[2022-05-06] MEDS: LIDOCAINE 5% TOPICAL PATCH TP SCH (22:51)
[2022-05-06] MEDS: LIDOCAINE PATCH REMOVAL MC SCH (22:57)
[2022-05-07] MEDS ORDERED: guaiFENesin 200 MG/10 ML 10 ML UNIT-DOSE CUPS PO ONE (04:08)
[2022-05-07] MEDS: GABAPENTIN 300 MG CAPSULE PO SCH ×3 (05:23→21:01)
[2022-05-07] MEDS: BACLOFEN 10 MG TABLET (FP) PO SCH ×3 (05:23→21:01)
[2022-05-07] MEDS: DOCUSATE SODIUM 100 MG CAPSULE (FP) PO SCH (10:00)
[2022-05-07] MEDS: clonazePAM 0.5 MG TABLET PO SCH ×2 (10:00→21:01)
[2022-05-07] MEDS ORDERED: LIDOCAINE PATCH REMOVAL MC ONE (10:00)
[2022-05-07] MEDS: FLUoxetine HCL 20 MG CAPSULE PO SCH (10:00)
[2022-05-07] MEDS: LIDOCAINE 5% TOPICAL PATCH TP SCH (10:01)
[2022-05-07] MEDS: POLYETHYLENE GLYCOL (HEALTHYLAX) 3350 17 GM PACKET PO SCH (10:01)
[2022-05-07] MEDS: ENOXAPARIN NA (PORCINE) 40 MG/0.4 ML DISP.SYRIN SQ SCH (10:01)
[2022-05-07] MEDS ORDERED: HYDROmorphone HCl 2 MG/ML VIAL IVPB PRN ×2 (10:07→10:09)
[2022-05-07 11:29] LABS: BASO % 0.8 % (0-2.0); HEMATOCRIT 36.6 % (32.4-45.2); HEMOGLOBIN 11.9 GM/dL (10.7-15.3); LYMPH % 38.5 % (8-40); MCH 25.7 pg (25.7-33.7); MCHC 32.6 g/dl (32.0-36.0); MEAN CELL VOLUME 78.8 fl (80-96); MEAN PLT VOLUME 8.2 fl (7.5-11.1); MONO % 7.3 % (3.8-10.2); NEUT % 50.4 % (42.8-82.8); PLATELET COUNT 394 10^3/uL (134-434); RBC 4.65 M/mm3 (3.60-5.2); RDW 18.9 % (11.6-15.6); WHITE BLOOD COUNT 8.2 K/mm3 (4.0-10.0)
[2022-05-07 12:06] LABS: ALBUMIN 3.3 g/dl (3.4-5.0); BLOOD UREA NITROGEN 15.6 mg/dL (7-18); MAGNESIUM 2.2 mg/dL (1.8-2.4)
[2022-05-07 12:10] LABS: CREATININE 0.6 mg/dL (0.55-1.3); PHOSPHOROUS 4.2 mg/dL (2.5-4.9)
[2022-05-07 12:11] LABS: BILIRUBIN,TOTAL 0.4 mg/dL (0.2-1); TOT PROT 7.3 g/dl (6.4-8.2)
[2022-05-07] MEDS ORDERED: ACETAMINOPHEN 325 MG TABLET (FP) PO PRN (13:03)
[2022-05-07] MEDS ORDERED: oxyCODONE HCL 5 MG TABLET PO PRN (13:04)
[2022-05-07] MEDS: CEFTRIAXONE 1 GM in DEXTROSE 5%-WATER - 50 ML IVPB SCH (14:07)
[2022-05-07] MEDS ORDERED: ACETAMINOPHEN 1000 MG/100 ML BAG IVPB ONE (20:53)
[2022-05-07] MEDS: oxyCODONE HCL 5 MG TABLET PO SCH (22:20)
[2022-05-07] MEDS: LIDOCAINE PATCH REMOVAL MC SCH (22:25)
[2022-05-08] MEDS: GABAPENTIN 300 MG CAPSULE PO SCH ×3 (05:55→21:11)
[2022-05-08] MEDS: BACLOFEN 10 MG TABLET (FP) PO SCH ×3 (05:56→21:42)
[2022-05-08] MEDS: DOCUSATE SODIUM 100 MG CAPSULE (FP) PO SCH (09:08)
[2022-05-08] MEDS: clonazePAM 0.5 MG TABLET PO SCH ×2 (09:08→21:11)
[2022-05-08] MEDS: FLUoxetine HCL 20 MG CAPSULE PO SCH (09:08)
[2022-05-08] MEDS: CEFTRIAXONE 1 GM in DEXTROSE 5%-WATER - 50 ML IVPB SCH (09:08)
[2022-05-08] MEDS: POLYETHYLENE GLYCOL (HEALTHYLAX) 3350 17 GM PACKET PO SCH (09:09)
[2022-05-08] MEDS: ENOXAPARIN NA (PORCINE) 40 MG/0.4 ML DISP.SYRIN SQ SCH (09:09)
[2022-05-08] MEDS: oxyCODONE HCL 5 MG TABLET PO SCH ×2 (09:10→21:10)
[2022-05-08] MEDS: LIDOCAINE 5% TOPICAL PATCH TP SCH (09:23)
[2022-05-08] MEDS: SENNOSIDES/DOCUSATE COMBO (SENNA PLUS) TABLET (UD) PO PRN ×2 (09:23→21:11)
[2022-05-08 09:45] VITALS: RESP 18
[2022-05-08 10:43] LABS: BASO % 0.4 % (0-2.0); EOS % 2.1 % (0-4.5); HEMATOCRIT 33.3 % (32.4-45.2); HEMOGLOBIN 11.1 GM/dL (10.7-15.3); LYMPH % 25.7 % (8-40); MCH 26.3 pg (25.7-33.7); MCHC 33.3 g/dl (32.0-36.0); MEAN PLT VOLUME 7.9 fl (7.5-11.1); MONO % 7.7 % (3.8-10.2); NEUT % 64.1 % (42.8-82.8); PLATELET COUNT 344 10^3/uL (134-434); RBC 4.22 M/mm3 (3.60-5.2); RDW 18.9 % (11.6-15.6); WHITE BLOOD COUNT 8.3 K/mm3 (4.0-10.0)
[2022-05-08 11:03] LABS: ALBUMIN 3.2 g/dl (3.4-5.0)
[2022-05-08 11:04] LABS: BLOOD UREA NITROGEN 18.9 mg/dL (7-18); CALCIUM 8.7 mg/dL (8.5-10.1)
[2022-05-08 11:07] LABS: CREATININE 0.6 mg/dL (0.55-1.3)
[2022-05-08 11:09] LABS: BILIRUBIN,TOTAL 0.2 mg/dL (0.2-1); TOT PROT 6.8 g/dl (6.4-8.2)
[2022-05-08] MEDS ORDERED: MAGNESIUM HYDROX 2400MG/30ML ORAL SUSPENSION 30 ML CUP PO ONE (21:10)
[2022-05-08] MEDS: LIDOCAINE PATCH REMOVAL MC SCH (21:42)
[2022-05-09] MEDS: GABAPENTIN 300 MG CAPSULE PO SCH ×3 (06:51→21:20)
[2022-05-09] MEDS: BACLOFEN 10 MG TABLET (FP) PO SCH ×3 (06:52→21:20)
[2022-05-09] MEDS ORDERED: BISACODYL 5 MG TABLET.DR (FP) PO ONE (08:57)
[2022-05-09] MEDS: CEFTRIAXONE 1 GM in DEXTROSE 5%-WATER - 50 ML IVPB SCH (09:09)
[2022-05-09] MEDS: LIDOCAINE 5% TOPICAL PATCH TP SCH (09:10)
[2022-05-09] MEDS: DOCUSATE SODIUM 100 MG CAPSULE (FP) PO SCH (09:13)
[2022-05-09] MEDS: oxyCODONE HCL 5 MG TABLET PO SCH ×2 (09:13→21:19)
[2022-05-09] MEDS: FLUoxetine HCL 20 MG CAPSULE PO SCH (09:14)
[2022-05-09] MEDS: ENOXAPARIN NA (PORCINE) 40 MG/0.4 ML DISP.SYRIN SQ SCH (09:14)
[2022-05-09] MEDS: clonazePAM 0.5 MG TABLET PO SCH ×2 (09:14→21:20)
[2022-05-09] MEDS: SENNOSIDES 8.6MG TABLET (FP) PO SCH ×3 (09:58→21:23)
[2022-05-09] MEDS ORDERED: SODIUM PHOSPHATE/NA BIPHOS 133 ML ENEMA RC ONE (17:39)
[2022-05-09] MEDS ORDERED: GLYCERIN 1 RECTAL SUPPOSITORY, ADULT RC PRN (20:13)
[2022-05-09 20:38] VITALS: BP 134/77; PULSE 91; TEMP 98.3
[2022-05-09] MEDS: LIDOCAINE PATCH REMOVAL MC SCH (21:23)
[2022-05-09] MEDS ORDERED: DOCUSATE SODIUM 100 MG CAPSULE (FP) PO SCH (22:00)
[2022-05-10] MEDS ORDERED: MELATONIN 5 MG TABLETS PO PRN (03:20)
[2022-05-10] MEDS ORDERED: ACETAMINOPHEN 1000 MG/100 ML BAG IVPB ONE (03:20)
== END 2022-05-10 04:00 | disposition left against medical advice (07) ==
LOC: JER 11:37 → JERBED 14:01 → J6S 16:02
PROVIDERS: ADMIT Internal Medicine; ATTEND Internal Medicine
PROC: 3E03329 Introduction of Other Anti-infective into Peripheral Vein, Percutaneous Approach (ICD-10-PCS; principal; 2022-05-06)
PROC: 3E033NZ Introduction of Analgesics, Hypnotics, Sedatives into Peripheral Vein, Percutaneous Approach (ICD-10-PCS; 2022-05-06)
PROC: 3E0337Z Introduction of Electrolytic and Water Balance Substance into Peripheral Vein, Percutaneous Approach (ICD-10-PCS; 2022-05-06)
DX: U07.1 COVID-19 (principal); D50.9 Iron deficiency anemia, unspecified; M54.9 Dorsalgia, unspecified; R11.2 Nausea with vomiting, unspecified; R31.9 Hematuria, unspecified; N31.2 Flaccid neuropathic bladder, not elsewhere classified; D72.829 Elevated white blood cell count, unspecified; Z87.440 Personal history of urinary (tract) infections; Z87.898 Personal history of other specified conditions; N12 Tubulo-interstitial nephritis, not specified as acute or chronic; W18.39XA Other fall on same level, initial encounter; Y93.89 Activity, other specified; Y92.89 Other specified places as the place of occurrence of the external cause; Z87.891 Personal history of nicotine dependence; Z88.6 Allergy status to analgesic agent; Z88.8 Allergy status to other drugs, medicaments and biological substances
CPT/HCPCS: 0241U-QW; 36415; 71045-TC-FY; 74177-TC; 80053; 81003; 83605; 83735; 84100; 84703; 85025; 85610; 85730; 86850; 86900; 86901; 87040; 87077; 87086; 87186; 93005; 93010; 96361; 96365; 96375; 96376; 97116-GP; 97161-GP; 99285-25; G0378; J0475; Q9967

== ENCOUNTER 2022-05-12 21:15 | Inpatient (IN) | payer OTHER ==
[2022-05-12] MEDS ORDERED: HYDROmorphone HCL CARPU-JECT 2 MG/1 ML DISP.SYRIN IVPUSH ONE (21:53)
[2022-05-12 22:08] LABS: EPI CELLS 9 /uL (0-25.1); HYALINE CASTS 1 /uL (0-3.1); PH,URINE 7.5 (5.0-8.0); URINE APPEARANCE CLOUDY; URINE BACTERIA 1205 /uL (0-1359); URINE BILIRUBIN NEGATIVE (NEGATIVE); URINE COLOR YELLOW; URINE GLUCOSE (UA) NEGATIVE (NEGATIVE); URINE KETONE NEGATIVE (NEGATIVE); URINE LEUK ESTERASE 2+ (NEGATIVE); URINE NITRITE NEGATIVE (NEGATIVE); URINE PROTEIN 1+ (NEGATIVE); URINE RBC 64 /uL (0-23.9); URINE UROBILINOGEN 0.2 mg/dL (0.2-1.0); URINE WBC 1566 /uL (0-25.8)
[2022-05-12] MEDS ORDERED: SODIUM CHLORIDE 0.9% 500 ML INFUS.BAG IV ONE (22:22)
[2022-05-12] MEDS ORDERED: HYDROmorphone HCl 2 MG/ML VIAL ONE (22:26)
[2022-05-12 22:32] LABS: EOS % 0.9 % (0-4.5); HEMATOCRIT 31.5 % (32.4-45.2); HEMOGLOBIN 10.5 GM/dL (10.7-15.3); LYMPH % 36.7 % (8-40); MCH 26.2 pg (25.7-33.7); MCHC 33.4 g/dl (32.0-36.0); MEAN CELL VOLUME 78.3 fl (80-96); MEAN PLT VOLUME 7.4 fl (7.5-11.1); MONO % 8.8 % (3.8-10.2); NEUT % 52.6 % (42.8-82.8); PLATELET COUNT 378 10^3/uL (134-434); RBC 4.03 M/mm3 (3.60-5.2); WHITE BLOOD COUNT 8.8 K/mm3 (4.0-10.0)
[2022-05-12] MEDS ORDERED: CEFTRIAXONE 1 GM in DEXTROSE 5%-WATER - 100 ML IVPB ONE (22:33)
[2022-05-12] MEDS ORDERED: CEFTRIAXONE 1 GM/50 ML BAG ONE (22:42)
[2022-05-12 22:51] LABS: CALCIUM 8.6 mg/dL (8.5-10.1)
[2022-05-12 22:52] LABS: ALBUMIN 3.2 g/dl (3.4-5.0); BLOOD UREA NITROGEN 15.5 mg/dL (7-18)
[2022-05-12 22:55] LABS: CREATININE 0.6 mg/dL (0.55-1.3)
[2022-05-12 22:56] LABS: BILIRUBIN,TOTAL 0.4 mg/dL (0.2-1)
[2022-05-13] MEDS ORDERED: SENNOSIDES/DOCUSATE COMBO (SENNA PLUS) TABLET (UD) PO PRN (01:08)
[2022-05-13] MEDS ORDERED: LIDOCAINE 5% TOPICAL PATCH TP PRN (01:08)
[2022-05-13] MEDS ORDERED: POLYETHYLENE GLYCOL (HEALTHYLAX) 3350 17 GM PACKET PO PRN (01:17)
[2022-05-13] MEDS ORDERED: PIPERACILLIN/TAZOB 3.375 GM 3.375 GM/50 ML BAG IVPB ONE (01:29)
[2022-05-13] MEDS: PIPERACILLIN/TAZOB 3.375 GM 3.375 GM in DEXTROSE 5%-WATER - 50 ML IVPB SCH ×6 (01:38→17:26)
[2022-05-13] MEDS ORDERED: oxyCODONE HCL 5 MG TABLET ONE (02:21)
[2022-05-13] MEDS: LINEZOLID 600 MG PREMIX BAG 600 MG/300 ML BAG IVPB SCH ×2 (02:42→14:55)
[2022-05-13 03:05] VITALS: BMI 23.8
[2022-05-13] MEDS: GABAPENTIN 300 MG CAPSULE PO SCH ×3 (06:33→21:59)
[2022-05-13] MEDS: SODIUM CHLORIDE 1,000 ML IV SCH (07:19)
[2022-05-13] MEDS: oxyCODONE HCL 5 MG TABLET PO SCH ×2 (10:11→22:01)
[2022-05-13] MEDS: BACLOFEN 10 MG TABLET (FP) PO SCH (10:11)
[2022-05-13] MEDS: FLUoxetine HCL 20 MG CAPSULE PO SCH (10:12)
[2022-05-13] MEDS: ENOXAPARIN NA (PORCINE) 40 MG/0.4 ML DISP.SYRIN SQ SCH (10:12)
[2022-05-13] MEDS: ACETAMINOPHEN 325 MG TABLET (FP) PO SCH ×2 (10:45→22:03)
[2022-05-13] MEDS: PHENAZOPYRIDINE HCL 100 MG TABLET (FP) PO SCH ×2 (16:39→22:00)
[2022-05-13] MEDS: LINEZOLID 600 MG PREMIX BAG 600 MG in PREMIX 300 IVPB SCH ×2 (17:24→17:25)
[2022-05-13] MEDS: CEFTRIAXONE 1 GM in DEXTROSE 5%-WATER - 50 ML IVPB SCH (17:59)
[2022-05-13] MEDS: oxyCODONE HCL 5 MG TABLET PO PRN (17:59)
[2022-05-13] MEDS: clonazePAM 0.5 MG TABLET PO PRN (20:24)
[2022-05-14] MEDS: oxyCODONE HCL 5 MG TABLET PO PRN ×3 (02:33→17:08)
[2022-05-14] MEDS: SODIUM CHLORIDE 1,000 ML IV SCH (06:36)
[2022-05-14] MEDS: GABAPENTIN 300 MG CAPSULE PO SCH ×3 (06:36→22:06)
[2022-05-14] MEDS: PHENAZOPYRIDINE HCL 100 MG TABLET (FP) PO SCH ×3 (06:37→22:06)
[2022-05-14] MEDS: clonazePAM 0.5 MG TABLET PO PRN ×3 (08:08→22:10)
[2022-05-14 08:15] LABS: HEMATOCRIT 30.3 % (32.4-45.2); HEMOGLOBIN 10.1 GM/dL (10.7-15.3); MCH 26.4 pg (25.7-33.7); MCHC 33.3 g/dl (32.0-36.0); MEAN CELL VOLUME 79.2 fl (80-96); MEAN PLT VOLUME 7.8 fl (7.5-11.1); PLATELET COUNT 344 10^3/uL (134-434); RBC 3.83 M/mm3 (3.60-5.2); WHITE BLOOD COUNT 7.9 K/mm3 (4.0-10.0)
[2022-05-14 08:43] LABS: CALCIUM 8.2 mg/dL (8.5-10.1)
[2022-05-14 08:44] LABS: ALBUMIN 2.7 g/dl (3.4-5.0)
[2022-05-14 08:45] LABS: MAGNESIUM 1.8 mg/dL (1.8-2.4)
[2022-05-14 08:46] LABS: PHOSPHOROUS 4.7 mg/dL (2.5-4.9)
[2022-05-14 08:48] LABS: BILIRUBIN,TOTAL 0.4 mg/dL (0.2-1)
[2022-05-14 08:52] LABS: BLOOD UREA NITROGEN 19.9 mg/dL (7-18); CREATININE 0.7 mg/dL (0.55-1.3)
[2022-05-14] MEDS ORDERED: cefTRIAXone SODIUM 1 GM VIAL ONE (09:58)
[2022-05-14] MEDS: ACETAMINOPHEN 325 MG TABLET (FP) PO SCH ×2 (10:00→22:09)
[2022-05-14] MEDS: oxyCODONE HCL 5 MG TABLET PO SCH ×2 (10:01→22:06)
[2022-05-14] MEDS: CEFTRIAXONE 1 GM in DEXTROSE 5%-WATER - 50 ML IVPB SCH (10:01)
[2022-05-14] MEDS: BACLOFEN 10 MG TABLET (FP) PO SCH (10:01)
[2022-05-14] MEDS: FLUoxetine HCL 20 MG CAPSULE PO SCH (10:01)
[2022-05-14] MEDS: ENOXAPARIN NA (PORCINE) 40 MG/0.4 ML DISP.SYRIN SQ SCH (10:02)
[2022-05-14 15:29] VITALS: RESP 18
[2022-05-15] MEDS: GABAPENTIN 300 MG CAPSULE PO SCH (05:52)
[2022-05-15] MEDS: oxyCODONE HCL 5 MG TABLET PO PRN (05:52)
[2022-05-15] MEDS: PHENAZOPYRIDINE HCL 100 MG TABLET (FP) PO SCH (06:01)
[2022-05-15 07:54] VITALS: BP 115/66; PULSE 71; TEMP 97.7
[2022-05-15] MEDS: ENOXAPARIN NA (PORCINE) 40 MG/0.4 ML DISP.SYRIN SQ SCH ×2 (09:23→09:37)
[2022-05-15] MEDS: ACETAMINOPHEN 325 MG TABLET (FP) PO SCH (09:23)
[2022-05-15] MEDS: oxyCODONE HCL 5 MG TABLET PO SCH (09:24)
[2022-05-15] MEDS: CEFTRIAXONE 1 GM in DEXTROSE 5%-WATER - 50 ML IVPB SCH (09:25)
[2022-05-15] MEDS: clonazePAM 0.5 MG TABLET PO PRN (09:25)
[2022-05-15] MEDS: FLUoxetine HCL 20 MG CAPSULE PO SCH (09:25)
[2022-05-15] MEDS: BACLOFEN 10 MG TABLET (FP) PO SCH (09:25)
[2022-05-15 10:40] LABS: BASO % 0.6 % (0-2.0); EOS % 1.8 % (0-4.5); HEMATOCRIT 33.3 % (32.4-45.2); HEMOGLOBIN 10.7 GM/dL (10.7-15.3); LYMPH % 24.3 % (8-40); MCH 25.8 pg (25.7-33.7); MCHC 32.1 g/dl (32.0-36.0); MEAN CELL VOLUME 80.1 fl (80-96); MEAN PLT VOLUME 8.1 fl (7.5-11.1); MONO % 6.3 % (3.8-10.2); PLATELET COUNT 384 10^3/uL (134-434); RBC 4.16 M/mm3 (3.60-5.2); WHITE BLOOD COUNT 9.2 K/mm3 (4.0-10.0)
[2022-05-15 12:52] LABS: CALCIUM 8.7 mg/dL (8.5-10.1)
[2022-05-15 12:53] LABS: BLOOD UREA NITROGEN 19.2 mg/dL (7-18); MAGNESIUM 2.1 mg/dL (1.8-2.4)
[2022-05-15 12:55] LABS: CREATININE 0.6 mg/dL (0.55-1.3)
[2022-05-15 12:57] LABS: BILIRUBIN,TOTAL 0.3 mg/dL (0.2-1); TOT PROT 6.8 g/dl (6.4-8.2)
[2022-05-15 13:30] LABS: HIV INTERPRETATION NEGATIVE (NEGATIVE)
== END 2022-05-15 13:53 | disposition home or self-care (01) | DRG 463 ==
LOC: JER 21:15 → JERBED 22:58 → OBSVTOIN 05-13 01:04 → J8W 05-13 02:16
PROVIDERS: ADMIT Internal Medicine; ATTEND Nurse Practitioner Family
DX: N39.0 Urinary tract infection, site not specified (principal); N31.9 Neuromuscular dysfunction of bladder, unspecified; N21.0 Calculus in bladder
CPT/HCPCS: 36415; 76775-TC; 76856-TC; 80053; 81003; 82607; 82728; 82746; 83540; 83550; 83735; 84100; 84466; 84703; 85025; 85027; 85045; 87077; 87086; 87389; 93005; 93010; 97116-GP; 97161-GP; 99285-25; C9803-CS; G0378; J0475; U0003; U0005

== ENCOUNTER 2022-06-10 05:25 | Day surgery (SDC) | payer OTHER ==
[2022-06-10] MEDS ORDERED: oxyCODONE HCL 5 MG TABLET PO PRN (16:23)
[2022-06-10] MEDS ORDERED: ONDANSETRON 4 MG/2 ML VIAL IVPUSH PRN (16:23)
[2022-06-10] MEDS ORDERED: LACTATED RINGERS SOLUTION 1,000 ML IV SCH (16:30)
[2022-06-10] MEDS ORDERED: MIDAZOLAM HCL 2 MG/2 ML SINGLE DOSE VIAL ONE (17:05)
[2022-06-10] MEDS ORDERED: PROPOFOL 20 ML ONE (17:09)
[2022-06-10] MEDS ORDERED: ceFAZolin SODIUM 1 GM VIAL IVPB ONE (17:15)
[2022-06-10] MEDS ORDERED: HYDROmorphone HCl 2 MG/ML VIAL ONE (18:01)
[2022-06-10] MEDS: HYDROmorphone HCl 2 MG/ML VIAL IVPUSH PRN ×3 (18:05→18:26)
[2022-06-10 19:35] VITALS: RESP 18
[2022-06-10 19:59] VITALS: BP 113/69; PULSE 72; TEMP 97.8
== END 2022-06-10 19:59 | disposition home or self-care (01) ==
LOC: JASU-SURG 05:25
PROVIDERS: ATTEND Urology
PROC: 0TCB8ZZ Extirpation of Matter from Bladder, Via Natural or Artificial Opening Endoscopic (ICD-10-PCS; principal; 2022-06-10 16:00)
DX: N21.0 Calculus in bladder (principal)
CPT/HCPCS: 36415; 81025; 82360; 88300-TC; 94760; C1758

== ENCOUNTER 2022-07-29 14:50 | Emergency (ER) | payer OTHER ==
[2022-07-29 15:27] VITALS: RESP 18; TEMP 97.7; BMI 30.6
[2022-07-29] MEDS ORDERED: ACETAMINOPHEN 1000 MG/100 ML BAG IVPB ONE (16:02)
[2022-07-29] MEDS ORDERED: ACETAMINOPHEN INJECTION 100 ML IVPB ONE (16:27)
[2022-07-29 16:52] LABS: BASO % 1.4 % (0-2.0); EOS % 1.4 % (0-4.5); HEMOGLOBIN 10.2 GM/dL (10.7-15.3); LYMPH % 34.8 % (8-40); MCH 25.4 pg (25.7-33.7); MEAN CELL VOLUME 76.9 fl (80-96); MEAN PLT VOLUME 7.7 fl (7.5-11.1); MONO % 5.7 % (3.8-10.2); NEUT % 56.7 % (42.8-82.8); PLATELET COUNT 364 10^3/uL (134-434); RBC 4.04 M/mm3 (3.60-5.2); RDW 16.7 % (11.6-15.6); WHITE BLOOD COUNT 7.7 K/mm3 (4.0-10.0)
[2022-07-29 16:55] LABS: EPI CELLS 12 /uL (0-25.1); HYALINE CASTS 0 /uL (0-3.1); PH,URINE 6.5 (5.0-8.0); URINE APPEARANCE CLEAR; URINE BACTERIA 41 /uL (0-1359); URINE BILIRUBIN NEGATIVE (NEGATIVE); URINE COLOR YELLOW; URINE GLUCOSE (UA) NEGATIVE (NEGATIVE); URINE KETONE NEGATIVE (NEGATIVE); URINE LEUK ESTERASE TRACE (NEGATIVE); URINE NITRITE NEGATIVE (NEGATIVE); URINE PROTEIN NEGATIVE (NEGATIVE); URINE RBC 8 /uL (0-23.9); URINE UROBILINOGEN 0.2 mg/dL (0.2-1.0); URINE WBC 43 /uL (0-25.8)
[2022-07-29 16:56] LABS: HCG,QUALITATIVE URINE Negative
[2022-07-29 17:19] LABS: POTASSIUM 4.4 mmol/L (3.5-5.1)
[2022-07-29 17:23] LABS: ALBUMIN 3.1 g/dl (3.4-5.0); BLOOD UREA NITROGEN 9.7 mg/dL (7-18)
[2022-07-29 17:26] LABS: CREATININE 0.5 mg/dL (0.55-1.3)
[2022-07-29 17:27] LABS: BILIRUBIN,TOTAL 0.2 mg/dL (0.2-1); TOT PROT 6.7 g/dl (6.4-8.2)
[2022-07-29] MEDS ORDERED: oxyCODONE HCL 5 MG TABLET PO ONE (18:28)
[2022-07-29] MEDS ORDERED: LIDOCAINE 5% TOPICAL PATCH TP ONE (18:29)
[2022-07-29] MEDS ORDERED: GABAPENTIN 300 MG CAPSULE PO ONE (18:29)
[2022-07-29] MEDS ORDERED: GABAPENTIN 300 MG CAPSULE ONE (18:34)
[2022-07-29] MEDS ORDERED: oxyCODONE HCL 5 MG TABLET ONE (18:34)
[2022-07-29] MEDS ORDERED: LIDOCAINE 5% TOPICAL PATCH ONE (18:34)
[2022-07-29 19:09] VITALS: BP 123/73; PULSE 92
[2022-07-29] MEDS ORDERED: LIDOCAINE PATCH REMOVAL MC ONE (22:00)
== END 2022-07-29 20:01 | disposition home or self-care (01) ==
LOC: JER 14:50
PROC: 3E033NZ Introduction of Analgesics, Hypnotics, Sedatives into Peripheral Vein, Percutaneous Approach (ICD-10-PCS; principal; 2022-07-29)
DX: N36.9 Urethral disorder, unspecified (principal); M79.2 Neuralgia and neuritis, unspecified; M54.9 Dorsalgia, unspecified; R10.9 Unspecified abdominal pain; R68.83 Chills (without fever)
CPT/HCPCS: 36415; 80053; 81003; 84703; 85025; 87086; 87186; 99284-25

== ENCOUNTER 2022-09-30 18:35 | Inpatient (IN) | payer OTHER ==
[2022-09-30 19:43] LABS: EPI CELLS 19 /uL (0-25.1); HYALINE CASTS 1 /uL (0-3.1); PH,URINE 5.5 (5.0-8.0); URINE APPEARANCE CLOUDY; URINE BACTERIA 3123 /uL (0-1359); URINE BILIRUBIN NEGATIVE (NEGATIVE); URINE COLOR DK YELLOW; URINE GLUCOSE (UA) NEGATIVE (NEGATIVE); URINE KETONE TRACE (NEGATIVE); URINE LEUK ESTERASE NEGATIVE (NEGATIVE); URINE NITRITE NEGATIVE (NEGATIVE); URINE PROTEIN 4+ (NEGATIVE); URINE RBC 541 /uL (0-23.9); URINE UROBILINOGEN 0.2 mg/dL (0.2-1.0)
[2022-09-30 19:49] LABS: HCG,QUALITATIVE URINE Negative
[2022-09-30] MEDS ORDERED: ACETAMINOPHEN INJECTION 100 ML IVPB ONE (20:16)
[2022-09-30] MEDS: ACETAMINOPHEN 1000 MG/100 ML BAG IVPB ONE (20:34)
[2022-09-30] MEDS ORDERED: CIPROFLOXACIN 400 MG/D5W 400 MG/200 ML IVPB IVPB ONE (20:40)
[2022-09-30 20:48] LABS: EOS % 1.4 % (0-4.5); HEMATOCRIT 31.4 % (32.4-45.2); HEMOGLOBIN 10.1 GM/dL (10.7-15.3); LYMPH % 33.1 % (8-40); MCH 24.9 pg (25.7-33.7); MCHC 32.1 g/dl (32.0-36.0); MEAN CELL VOLUME 77.6 fl (80-96); MEAN PLT VOLUME 7.8 fl (7.5-11.1); MONO % 8.2 % (3.8-10.2); NEUT % 56.3 % (42.8-82.8); PLATELET COUNT 419 10^3/uL (134-434); RBC 4.04 M/mm3 (3.60-5.2); RDW 18.2 % (11.6-15.6); WHITE BLOOD COUNT 9.3 K/mm3 (4.0-10.0)
[2022-09-30 21:12] LABS: CALCIUM 8.7 mg/dL (8.5-10.1)
[2022-09-30 21:13] LABS: ALBUMIN 3.1 g/dl (3.4-5.0); BLOOD UREA NITROGEN 20.5 mg/dL (7-18)
[2022-09-30 21:16] LABS: CREATININE 0.5 mg/dL (0.55-1.3)
[2022-09-30 21:17] LABS: BILIRUBIN,TOTAL 0.2 mg/dL (0.2-1)
[2022-09-30 21:19] LABS: TOT PROT 6.8 g/dl (6.4-8.2)
[2022-09-30 21:52] LABS: POTASSIUM 4.3 mmol/L (3.5-5.1)
[2022-09-30] MEDS ORDERED: SODIUM CHLORIDE 0.9% 500 ML INFUS.BAG IV ONE (21:59)
[2022-09-30] MEDS ORDERED: HYDROmorphone HCl 2 MG/ML VIAL IM ONE (21:59)
[2022-09-30] MEDS ORDERED: HYDROmorphone HCl 2 MG/ML VIAL ONE (22:00)
[2022-10-01] MEDS ORDERED: CEFTRIAXONE 1,000 MG in DEXTROSE 5%-WATER - 50 ML IVPB SCH (02:54)
[2022-10-01] MEDS: ACETAMINOPHEN 1000 MG/100 ML BAG IVPB ONE (02:59)
[2022-10-01] MEDS ORDERED: ACETAMINOPHEN INJECTION 100 ML IVPB ONE (03:01)
[2022-10-01] MEDS ORDERED: CEFTRIAXONE 1 GM/50 ML BAG ONE (03:01)
[2022-10-01 03:33] LABS: EPI CELLS 13 /uL (0-25.1); HYALINE CASTS 0 /uL (0-3.1); URINE APPEARANCE CLEAR; URINE BACTERIA 71 /uL (0-1359); URINE BILIRUBIN NEGATIVE (NEGATIVE); URINE COLOR YELLOW; URINE GLUCOSE (UA) NEGATIVE (NEGATIVE); URINE KETONE NEGATIVE (NEGATIVE); URINE LEUK ESTERASE TRACE (NEGATIVE); URINE NITRITE NEGATIVE (NEGATIVE); URINE PROTEIN 1+ (NEGATIVE); URINE RBC 10 /uL (0-23.9); URINE UROBILINOGEN 0.2 mg/dL (0.2-1.0); URINE WBC 33 /uL (0-25.8)
[2022-10-01] MEDS ORDERED: SENNOSIDES/DOCUSATE COMBO (SENNA PLUS) TABLET (UD) PO PRN (03:36)
[2022-10-01] MEDS: CEFTRIAXONE 1 GM in DEXTROSE 5%-WATER - 50 ML IVPB SCH (03:37)
[2022-10-01] MEDS ORDERED: HYDROmorphone HCl 2 MG/ML VIAL IM ONE (03:49)
[2022-10-01 03:58] VITALS: BMI 32.5
[2022-10-01] MEDS ORDERED: LINEZOLID 600 MG PREMIX BAG 600 MG/300 ML BAG IVPB SCH (04:00)
[2022-10-01] MEDS: BACLOFEN 10 MG TABLET (FP) PO SCH ×4 (04:21→21:16)
[2022-10-01 05:17] LABS: RETICULOCYTES 1.69 % (0.5-1.5)
[2022-10-01] MEDS: GABAPENTIN 300 MG CAPSULE PO SCH ×3 (06:00→21:16)
[2022-10-01] MEDS: SENNOSIDES 8.6MG TABLET (FP) PO SCH (10:08)
[2022-10-01] MEDS: oxyCODONE HCL 5 MG TABLET PO PRN ×3 (10:09→22:07)
[2022-10-01] MEDS: ACETAMINOPHEN 325 MG TABLET (FP) PO PRN ×3 (10:11→22:08)
[2022-10-01] MEDS: BISACODYL 5 MG TABLET.DR (FP) PO SCH (10:12)
[2022-10-01] MEDS: clonazePAM 0.5 MG TABLET PO SCH ×2 (10:12→21:16)
[2022-10-01] MEDS: FLUoxetine HCL 20 MG CAPSULE PO SCH (10:12)
[2022-10-01] MEDS: ENOXAPARIN NA (PORCINE) 40 MG/0.4 ML DISP.SYRIN SQ SCH ×2 (10:13→10:29)
[2022-10-01 10:48] LABS: HEMATOCRIT 30.3 % (32.4-45.2); HEMOGLOBIN 9.9 GM/dL (10.7-15.3); MCH 25.7 pg (25.7-33.7); MCHC 32.6 g/dl (32.0-36.0); MEAN CELL VOLUME 78.6 fl (80-96); MEAN PLT VOLUME 8.2 fl (7.5-11.1); PLATELET COUNT 376 10^3/uL (134-434); RBC 3.86 M/mm3 (3.60-5.2); RDW 18.2 % (11.6-15.6); WHITE BLOOD COUNT 7.5 K/mm3 (4.0-10.0)
[2022-10-01 11:09] LABS: POTASSIUM 3.9 mmol/L (3.5-5.1)
[2022-10-01 11:20] LABS: ALBUMIN 2.6 g/dl (3.4-5.0); BLOOD UREA NITROGEN 14.6 mg/dL (7-18)
[2022-10-01 11:23] LABS: CREATININE 0.5 mg/dL (0.55-1.3)
[2022-10-01 11:25] LABS: BILIRUBIN,TOTAL 0.2 mg/dL (0.2-1); CALCIUM 8.4 mg/dL (8.5-10.1)
[2022-10-02] MEDS ORDERED: LINEZOLID 600 MG PREMIX BAG 600 MG/300 ML BAG IVPB SCH (04:00)
[2022-10-02] MEDS: oxyCODONE HCL 5 MG TABLET PO PRN ×3 (05:16→18:30)
[2022-10-02] MEDS: GABAPENTIN 300 MG CAPSULE PO SCH ×3 (05:17→21:25)
[2022-10-02] MEDS: BACLOFEN 10 MG TABLET (FP) PO SCH ×3 (05:17→21:24)
[2022-10-02] MEDS: ACETAMINOPHEN 325 MG TABLET (FP) PO PRN (05:18)
[2022-10-02] MEDS: SENNOSIDES 8.6MG TABLET (FP) PO SCH (11:19)
[2022-10-02] MEDS: ENOXAPARIN NA (PORCINE) 40 MG/0.4 ML DISP.SYRIN SQ SCH (11:19)
[2022-10-02] MEDS: BISACODYL 5 MG TABLET.DR (FP) PO SCH (11:19)
[2022-10-02] MEDS: FLUoxetine HCL 20 MG CAPSULE PO SCH (11:20)
[2022-10-02] MEDS: clonazePAM 0.5 MG TABLET PO SCH ×2 (11:20→21:24)
[2022-10-02] MEDS: LIDOCAINE 5% TOPICAL PATCH TP SCH (11:21)
[2022-10-02] MEDS: CEFTRIAXONE 1 GM in DEXTROSE 5%-WATER - 50 ML IVPB SCH (11:21)
[2022-10-02] MEDS: LIDOCAINE PATCH REMOVAL MC SCH (22:00)
[2022-10-03] MEDS: oxyCODONE HCL 5 MG TABLET PO PRN ×4 (00:30→18:30)
[2022-10-03] MEDS: BACLOFEN 10 MG TABLET (FP) PO SCH ×3 (06:25→21:04)
[2022-10-03] MEDS: GABAPENTIN 300 MG CAPSULE PO SCH ×3 (06:25→21:09)
[2022-10-03 08:26] LABS: BASO % 0.9 % (0-2.0); HEMATOCRIT 30.2 % (32.4-45.2); HEMOGLOBIN 9.6 GM/dL (10.7-15.3); MCH 24.9 pg (25.7-33.7); MCHC 31.7 g/dl (32.0-36.0); MEAN CELL VOLUME 78.5 fl (80-96); MEAN PLT VOLUME 8.1 fl (7.5-11.1); MONO % 7.7 % (3.8-10.2); NEUT % 46.4 % (42.8-82.8); PLATELET COUNT 344 10^3/uL (134-434); RBC 3.84 M/mm3 (3.60-5.2); RDW 18.5 % (11.6-15.6)
[2022-10-03 08:56] LABS: POTASSIUM 4.2 mmol/L (3.5-5.1)
[2022-10-03] MEDS: ENOXAPARIN NA (PORCINE) 40 MG/0.4 ML DISP.SYRIN SQ SCH ×2 (09:24→09:44)
[2022-10-03] MEDS: SENNOSIDES 8.6MG TABLET (FP) PO SCH (09:24)
[2022-10-03] MEDS: BISACODYL 5 MG TABLET.DR (FP) PO SCH (09:25)
[2022-10-03] MEDS: LIDOCAINE 5% TOPICAL PATCH TP SCH (09:25)
[2022-10-03] MEDS: FLUoxetine HCL 20 MG CAPSULE PO SCH (09:25)
[2022-10-03] MEDS: clonazePAM 0.5 MG TABLET PO SCH ×2 (09:25→21:04)
[2022-10-03] MEDS: CEFTRIAXONE 1 GM in DEXTROSE 5%-WATER - 50 ML IVPB SCH (09:26)
[2022-10-03 09:31] LABS: ALBUMIN 2.8 g/dl (3.4-5.0); BLOOD UREA NITROGEN 13.1 mg/dL (7-18); CALCIUM 8.4 mg/dL (8.5-10.1)
[2022-10-03 09:32] LABS: MAGNESIUM 2.2 mg/dL (1.8-2.4)
[2022-10-03 09:35] LABS: BILIRUBIN,TOTAL 0.3 mg/dL (0.2-1); CREATININE 0.5 mg/dL (0.55-1.3)
[2022-10-03 09:36] LABS: TOT PROT 6.2 g/dl (6.4-8.2)
[2022-10-03] MEDS: LIDOCAINE PATCH REMOVAL MC SCH (21:09)
[2022-10-03 21:17] VITALS: RESP 18
[2022-10-04] MEDS: oxyCODONE HCL 5 MG TABLET PO PRN ×3 (00:41→10:23)
[2022-10-04] MEDS: BACLOFEN 10 MG TABLET (FP) PO SCH (05:23)
[2022-10-04] MEDS: GABAPENTIN 300 MG CAPSULE PO SCH (05:36)
[2022-10-04 09:16] VITALS: BP 111/62; PULSE 70; TEMP 98.5
[2022-10-04] MEDS: SENNOSIDES 8.6MG TABLET (FP) PO SCH (09:21)
[2022-10-04] MEDS: CEFTRIAXONE 1 GM in DEXTROSE 5%-WATER - 50 ML IVPB SCH (09:22)
[2022-10-04] MEDS: ENOXAPARIN NA (PORCINE) 40 MG/0.4 ML DISP.SYRIN SQ SCH (09:22)
[2022-10-04] MEDS: LIDOCAINE 5% TOPICAL PATCH TP SCH (09:22)
[2022-10-04] MEDS: clonazePAM 0.5 MG TABLET PO SCH (09:22)
[2022-10-04] MEDS: FLUoxetine HCL 20 MG CAPSULE PO SCH (09:22)
[2022-10-04] MEDS: BISACODYL 5 MG TABLET.DR (FP) PO SCH (09:22)
[2022-10-04] MEDS: ACETAMINOPHEN 325 MG TABLET (FP) PO PRN (09:23)
== END 2022-10-04 10:49 | disposition home or self-care (01) | DRG 466 ==
LOC: JER 18:35 → JERBED 10-01 01:37 → OBSVTOIN 10-01 02:50 → J8W 10-01 03:19
PROVIDERS: ADMIT Internal Medicine; ATTEND Nurse Practitioner Family
DX: T83.518A Infection and inflammatory reaction due to other urinary catheter, initial encounter (principal); N39.0 Urinary tract infection, site not specified; B96.20 Unspecified Escherichia coli [E. coli] as the cause of diseases classified elsewhere; N31.9 Neuromuscular dysfunction of bladder, unspecified; M21.371 Foot drop, right foot; K59.00 Constipation, unspecified; G83.14 Monoplegia of lower limb affecting left nondominant side; M79.2 Neuralgia and neuritis, unspecified; D64.9 Anemia, unspecified; F41.8 Other specified anxiety disorders; Y84.6 Urinary catheterization as the cause of abnormal reaction of the patient, or of later complication, without mention of misadventure at the time of the procedure; Y92.89 Other specified places as the place of occurrence of the external cause; Z86.718 Personal history of other venous thrombosis and embolism; Z74.01 Bed confinement status
CPT/HCPCS: 0241U-QW; 36415; 71045-TC-FY; 71275-TC; 74177-TC; 80053; 81003; 82728; 83550; 83605; 83735; 84466; 84484; 84703; 85025; 85027; 85045; 85379; 87040; 87086; 87186; 93005; 93010; 97116-GP; 97161-GP; 99285-25; G0378; J0475; Q9967

== ENCOUNTER 2022-10-07 10:40 | Emergency (ER) | payer OTHER ==
[2022-10-07 10:49] VITALS: RESP 20; TEMP 98.9; BMI 32.1
[2022-10-07 12:13] LABS: EPI CELLS 32 /uL (0-25.1); HYALINE CASTS 2 /uL (0-3.1); PH,URINE 5.5 (5.0-8.0); URINE APPEARANCE CLEAR; URINE BACTERIA 7 /uL (0-1359); URINE BILIRUBIN NEGATIVE (NEGATIVE); URINE COLOR YELLOW; URINE GLUCOSE (UA) NEGATIVE (NEGATIVE); URINE KETONE NEGATIVE (NEGATIVE); URINE LEUK ESTERASE NEGATIVE (NEGATIVE); URINE NITRITE NEGATIVE (NEGATIVE); URINE PROTEIN 2+ (NEGATIVE); URINE RBC 26 /uL (0-23.9); URINE UROBILINOGEN 0.2 mg/dL (0.2-1.0); URINE WBC 15 /uL (0-25.8)
[2022-10-07] MEDS ORDERED: HYDROmorphone HCl 2 MG/ML VIAL IVPUSH ONE (12:49)
[2022-10-07] MEDS ORDERED: HYDROmorphone HCl 2 MG/ML VIAL ONE (13:03)
[2022-10-07] MEDS ORDERED: ACETAMINOPHEN 500 MG TABLET (FP) PO ONE (15:57)
[2022-10-07] MEDS ORDERED: ACETAMINOPHEN 325 MG TABLET (FP) ONE (15:59)
[2022-10-07 17:54] VITALS: BP 107/78; PULSE 74
== END 2022-10-07 17:55 | disposition home or self-care (01) ==
LOC: JER 10:40
PROC: 3E033GC Introduction of Other Therapeutic Substance into Peripheral Vein, Percutaneous Approach (ICD-10-PCS; principal; 2022-10-07)
DX: T83.091A Other mechanical complication of indwelling urethral catheter, initial encounter (principal); R10.30 Lower abdominal pain, unspecified; R31.9 Hematuria, unspecified; R42 Dizziness and giddiness; R06.02 Shortness of breath
CPT/HCPCS: 72170-TC-FY; 73502-TC-LT-FY; 81003; 87086; 99284-25

== ENCOUNTER 2022-10-14 11:38 | Emergency (ER) | payer OTHER ==
[2022-10-14 12:19] VITALS: BP 131/84; PULSE 68; RESP 18; TEMP 98.4; BMI 31.1
[2022-10-14] MEDS ORDERED: ACETAMINOPHEN 1000 MG/100 ML BAG IVPB ONE (12:30)
[2022-10-14] MEDS ORDERED: LACTATED RINGERS SOLUTION 1000 ML INFUS.BAG IV ONE (12:30)
[2022-10-14] MEDS ORDERED: ACETAMINOPHEN INJECTION 100 ML IVPB ONE (12:37)
[2022-10-14 13:01] LABS: EPI CELLS 9 /uL (0-25.1); HYALINE CASTS 0 /uL (0-3.1); PH,URINE 5.5 (5.0-8.0); URINE APPEARANCE CLEAR; URINE BACTERIA 18 /uL (0-1359); URINE BILIRUBIN NEGATIVE (NEGATIVE); URINE COLOR YELLOW; URINE GLUCOSE (UA) NEGATIVE (NEGATIVE); URINE KETONE NEGATIVE (NEGATIVE); URINE LEUK ESTERASE NEGATIVE (NEGATIVE); URINE NITRITE NEGATIVE (NEGATIVE); URINE PROTEIN NEGATIVE (NEGATIVE); URINE RBC 13 /uL (0-23.9); URINE UROBILINOGEN 0.2 mg/dL (0.2-1.0); URINE WBC 4 /uL (0-25.8)
[2022-10-14 13:01] LABS: BASO % 0.7 % (0-2.0); EOS % 1.1 % (0-4.5); HEMATOCRIT 31.1 % (32.4-45.2); HEMOGLOBIN 10.2 GM/dL (10.7-15.3); LYMPH % 25.5 % (8-40); MCHC 32.6 g/dl (32.0-36.0); MEAN CELL VOLUME 76.7 fl (80-96); MONO % 9.2 % (3.8-10.2); NEUT % 63.5 % (42.8-82.8); PLATELET COUNT 408 10^3/uL (134-434); RBC 4.06 M/mm3 (3.60-5.2); RDW 18.6 % (11.6-15.6); WHITE BLOOD COUNT 7.8 K/mm3 (4.0-10.0)
[2022-10-14 13:36] LABS: POTASSIUM 4.6 mmol/L (3.5-5.1)
[2022-10-14 13:41] LABS: CALCIUM 8.5 mg/dL (8.5-10.1)
[2022-10-14 13:42] LABS: ALBUMIN 3.2 g/dl (3.4-5.0); BLOOD UREA NITROGEN 11.6 mg/dL (7-18)
[2022-10-14 13:45] LABS: CREATININE 0.5 mg/dL (0.55-1.3)
[2022-10-14 13:46] LABS: BILIRUBIN,TOTAL 0.3 mg/dL (0.2-1); TOT PROT 6.9 g/dl (6.4-8.2)
[2022-10-14] MEDS ORDERED: FAMOTIDINE 20 MG/50 ML IVPB 20 MG/50 ML MG IVPB ONE (15:15)
[2022-10-14] MEDS ORDERED: MAG HYDROX/AL HYDROX/SIMETH 30 ML UNIT-DOSE CUP ONE (15:15)
[2022-10-14] MEDS: MAG HYDROX/AL HYDROX/SIMETH 30 ML UNIT-DOSE CUP PO ONE ×2 (15:52→16:01)
[2022-10-14] MEDS: FAMOTIDINE 20 MG/50 ML IVPB 20 MG/50 ML MG IVPB ONE ×2 (15:52→16:01)
== END 2022-10-14 16:46 | disposition left against medical advice (07) ==
LOC: JER 11:38
PROC: 3E033NZ Introduction of Analgesics, Hypnotics, Sedatives into Peripheral Vein, Percutaneous Approach (ICD-10-PCS; principal; 2022-10-14)
DX: R10.30 Lower abdominal pain, unspecified (principal); R11.0 Nausea; R68.83 Chills (without fever)
CPT/HCPCS: 36415; 80053; 81003; 83690; 84484; 84703; 85025; 87086; 93005; 93010; 99284-25

== ENCOUNTER 2023-02-28 01:14 | Emergency (ER) | payer OTHER ==
[2023-02-28 02:06] VITALS: BMI 30.2
[2023-02-28 03:28] LABS: BASO % 0.5 % (0-2.0); EOS % 2.4 % (0-4.5); HEMATOCRIT 30.7 % (32.4-45.2); HEMOGLOBIN 9.8 GM/dL (10.7-15.3); LYMPH % 25.7 % (8-40); MCH 22.8 pg (25.7-33.7); MCHC 31.8 g/dl (32.0-36.0); MEAN CELL VOLUME 71.5 fl (80-96); MEAN PLT VOLUME 7.6 fl (7.5-11.1); MONO % 12.6 % (3.8-10.2); NEUT % 58.8 % (42.8-82.8); PLATELET COUNT 476 10^3/uL (134-434); RDW 18.1 % (11.6-15.6); WHITE BLOOD COUNT 9.5 K/mm3 (4.0-10.0)
[2023-02-28 03:48] LABS: POTASSIUM 3.6 mmol/L (3.5-5.1)
[2023-02-28 03:50] LABS: ALBUMIN 3.4 g/dl (3.4-5.0); BLOOD UREA NITROGEN 15.4 mg/dL (7-18); CALCIUM 8.2 mg/dL (8.5-10.1)
[2023-02-28 03:53] LABS: CREATININE 0.8 mg/dL (0.55-1.3)
[2023-02-28 03:55] LABS: BILIRUBIN,TOTAL 0.4 mg/dL (0.2-1); TOT PROT 7.3 g/dl (6.4-8.2)
[2023-02-28 05:57] LABS: HIV INTERPRETATION NEGATIVE (NEGATIVE)
[2023-02-28 06:56] LABS: COCAINE, UR NEGATIVE (NEGATIVE)
[2023-02-28 06:57] LABS: METHADONE, UR NEGATIVE (NEGATIVE); PHENCYCLIDINE,URINE NEGATIVE (NEGATIVE); URINE BARBITURATES NEGATIVE (NEGATIVE); URINE BENZODIAZEPINES NEGATIVE (NEGATIVE)
[2023-02-28 07:05] LABS: OPIATES, URI POSITIVE (NEGATIVE); URINE AMPHETAMINES POSITIVE (NEGATIVE)
[2023-02-28 13:36] VITALS: BP 117/73; PULSE 92; RESP 20; TEMP 98.3
== END 2023-02-28 13:39 | disposition home or self-care (01) ==
LOC: JER 01:14
DX: R05.9 Cough, unspecified (principal); R06.02 Shortness of breath; R07.9 Chest pain, unspecified; Z20.822 Contact with and (suspected) exposure to COVID-19
CPT/HCPCS: 0241U-QW; 36415; 71045-TC-FY; 80053; 80307; 84484; 85025; 87389; 93005; 93010; 99285-25